=== PATIENT | female | born 2005 | race Caucasian/White ===

== ENCOUNTER 2023-05-19 12:48 | Outpatient (OUT) | payer OTHER, SELFPAY ==
--- NOTE | 2023-05-19 12:53 | US_ITS ---
The [address] [address] Patient Name: BEVERLY GÓMEZ MRN: [id number] date: 2005 Sex: F Assigned Patient [facility]: [facility] Current [facility]: [facility] Accession/Order Number: [id number] Exam Date: 05/19/2023 12:53 Report Date: 05/19/2023 13:57 At the request of: KERRY BAUTISTA Procedure: US pelvis w/ transvaginal EXAM: Pelvic ultrasound ultrasound CLINICAL INDICATION: PELVIC PAIN. COMPARISON: CT scan dated 12/27/2015 TECHNIQUE: Transabdominal and transvaginal grayscale and color Doppler images were obtained. FINDINGS: Uterus: Uterus measures 6.1 x 2.7 x 3.3 cm. No abnormal uterine masses. Endometrium measures mm thickness. Right ovary: Measures 2.3 x 2.2 x 1.9 cm. Normal color flow and Doppler arterial and venous waveforms. No ovarian masses. Left ovary: Measures 2.2 x 1.8 x 1.7 cm. Normal color flow and Doppler arterial and venous waveforms. No ovarian masses. No free fluid in the pelvis. US/US pelvis w/ transvaginal IMPRESSION: No significant sonographic abnormalities in the pelvis. Electronically authenticated by: FLACA GÓMEZ Date: 05/19/2023 13:57
== END 2023-05-19 12:49 | disposition home or self-care (01) ==
LOC: NOMS 12:49
PROVIDERS: Visit Provider Obstetrics & Gynecology
DX: R10.2 Pelvic and perineal pain (principal)
CPT/HCPCS: 76830; 76856

== ENCOUNTER 2023-06-26 10:52 | Outpatient (OUT) | payer OTHER, SELFPAY ==
--- OUTSIDE RECORDS SUMMARY | 2023-06-26 10:59 | XMS_ITS | CCD ---
Author Organization [facility] Care Team Providers Care Carton Counter Feeder Name Role Phone TYSON BANDA Attending Unavailable TYSON BANDA Admitting Unavailable TYSON BANDA Consulting Unavailable TYSON BANDA Attending Unavailable TYSON BANDA Admitting Unavailable TYSON BANDA Consulting Unavailable MD Talat Nolan Primary Care Provider DO Irma Smith Attending Provider [phone] Irma Smith Admitting Unavailable Irma Smith Attending Unavailable NON STAFF Primary Care Unavailable Irma Smith Admitting Unavailable Irma Smith Attending Unavailable Talat Nolan Primary Care Unavailable Lori Stephen Admitting Unavailable Lori Stephen Attending Unavailable Talat Nolan Primary Care Unavailable Lori Stephen Unavailable Unavailable Primary Care Provider Unavailabl e RICHARD MCCLELLAN Attending Unavailab AKANKSHA Jack Unavailable RICHARD MCCLELLAN Referring Unavailab KERRY Smith Attending Unavailable AKANKSHA OBRIEN Referring Unavailable TALAT NOLAN Primary Care Unavailabl e Medications Current Medications Medication Drug Class(es) Dates Sig (Normalized) Sig (Original) Ethinyl Estradiol / Ferrous fumarate / Norethindrone (2 sources) Estrogen Start: 05-19-2023 End: 05-18-2024 norethindrone-et hinyl estradiol (04/25) 1-20 MG-MCG tablet Indications: control counseling Take 1 tablet by mouth in the morning. 28 tablet 11 05/19/2023 05/18/2024 Active ibuprofen 400 mg oral tablet (3 sources) Nonsteroidal Anti-inflammatory Drug Start: 12-12-2017 take 400 mg by mouth three times daily Ibuprofen Active 400 MG PO Three times daily 20 Deidra 8th, 2018 12:00am ibuprofen 800 MG tablet 400 mg every 6 (six) hours if needed 0 Active levETIRAcetam 500 mg oral tablet (2 sources) take 1 tablet by mouth in the morning levETIRAcetam (Keppra) 500 MG tablet Take 500 mg by mouth in the morning and 500 mg in the evening. 0 Active 24 hr metFORMIN hydrochloride 500 mg extended release oral tablet (2 sources) Biguanide Start : 07-02 take 1 tablet by mouth every twenty-four hours at mealtime metFORMIN XR (Glucophage-XR) 500 MG 24 hr tablet Take 500 mg by mouth in the evening. Take with meals 0 07/02/2022 Active methylPREDNISolone 4 mg oral tablet (1 source) Corticosteroid Start : 02-10 methylPREDNISolone 4 MG as directed Orally Once a day for 6 days Feb, Active ondansetron 4 mg disintegrating oral tablet (1 source) Serotonin-3 Receptor Antagonist Start : 12-12 take 1 tablet by mouth every eight hours Ondansetron (Zofran Odt) 4 mg tablet,disintegrating Active 4 MG PO Q8H 9 3 December 12, 2017 12:00am OXcarbazepine 600 mg oral tablet (3 sources) Anti-epileptic Agent take 2 tablets by mouth in the morning OXcarbazepine (Trileptal) 600 MG tablet Take 1,200 mg by mouth in the morning and 1,200 mg before bedtime. 0 Active Trileptal Active Completed/Discontinued Medications Medication Drug Class(es) Dates Sig (Normalized) Sig (Original) amoxicillin 80 mg/ml oral suspension (1 source) Penicillin-class Antibacterial Start: 2014 take 10 mL by mouth twice daily Amoxicillin 400 MG/5ML 10 ml Orally Twice a day for 10 days Oct, Not-Taking Azithromycin (1 source) Macrolide Antimicrobial Start: 07-14-2014 take 12.5 mL by mouth once daily Zithromax 200mg/5ml 200 mg/5 ml 12.5 mL orally daily for 5 days Jul, Not-Taking ofloxacin 3 mg/ml ophthalmic solution (1 source) Quinolone Antimicrobial Start: 2014 Ofloxacin 0.3 % 10 drops into affected ear Otic Once a day for 7 day(s) Oct, Not-Taking Problems Problem Classification Problem Date Documented Da te Episodic/Chronic Abdominal pain (2 sources) Pain in pelvis; Translations: [Pelvic and perineal pain] 05-19-2023 Episodic Administrative/social admission (2 sources) Follow-up status; Translations: [Person consulting for explanation of examination or test findings] 05-19-2023 Episodic Contraceptive and procreative management (2 sources) Patient encounter status; Translations: [Encounter for other general counseling and advice on contraception] 05-19-2023 Episodic Epilepsy; convulsions (3 sources) Generalized idiopathic epilepsy and epileptic syndromes, not intractable, without status epilepticus; Translations: [Generalized convulsive epilepsy, without mention of intractable epilepsy] Onset: 02-06-2022 05-07-2023 Chronic Epilepsy; convulsions (1 source) Epilepsy; convulsions; Translations: [G40.309 - Generalized idiopathic epilepsy and epileptic syndromes, not intractable, without status epilepticus] Onset: 02-26-2021 Immunizations and screening for infectious disease (4 sources) Encounter for immunization; Translations: [ENCOUNTER FOR IMMUNIZATION] Onset: 08-09-2020 Episodic Other endocrine disorders (2 sources) Polycystic ovary syndrome; Translations: [Polycystic ovarian syndrome] 05-19-2023 Chronic Other endocrine disorders (1 source) Polycystic ovarian syndrome; Translations: [Polycystic ovarian syndrome] Onset: 06-06-2023 Chronic Other injuries and conditions due to external causes (1 source) Unspecified injury of right ankle, initial encounter Episodic Unclassified (1 source) Unspecified injury of right ankle, initial encounter; Translations: [Unspecified injury of right ankle, initial encounter] Onset: 02-10-2022 Results Test Name Value Interpretation Reference Range Facility CBC AND AUTO DIFFon 06-06-19 24 ABSOLUTE BASOPHIL 0.1 X10E9/L Normal 0.0-0.2 [facility] Comment on above: Performed By: #### C BCA, 84858-8, THYR, 59645-1, 59563-6 #### [facility] ([id number]) [address] [place] [address], [address] [place] [address] #### 2193-1 #### [facility] ([id number]) [address] [place] [address], [place] [address] ABSOLUTE NEUTROPHIL 2.2 X10E9/L Normal 1.5-6.6 [facility] Comment on above: Performed By: #### C SHANICE, , THYR, 49304-2, 80397-9 #### [facility] ([id number]) [address], [address] [place] [address] #### 2193-1 #### [facility] ([id number]) [address] [place] [address] Basophils/100 WBC (Bld) 1.1 % Normal [facility] Comment on above: Performed By: #### C SHANICE, , THYR, 94207-0, 13821-1 #### [facility] ([id number]) [address] [facility], [address] [place] [address] #### 2193-1 #### [facility] ([id number]) [address] [place] [address]491 Eosinophils (Bld) [#/Vol] 0.1 10*3/uL Normal 0.0-0.4 [facility] Comment on above: Performed By: #### C SHANICE, , THYR, 63246-2, 25637-8 #### [facility] ([id number]) [address], [address] [place] [address] #### 2193-1 #### [facility] ([id number]) [address] [place] [address] Eosinophils/100 WBC (Bld) 1.4 % Normal [facility] Comment on above: Performed By: #### C BCA, , THYR, 95037-9, 61618-9 #### [facility] ([id number]) [address], [address] [place] [address] #### 2193-1 #### [facility] ([id number]) [address] [place] [address] 18482 Erythrocyte distribution width (RBC) [Ratio] 13.0 % Normal 11.5-15.0 [facility] Comment on above: Performed By: #### C BCA, 92700-8, THYR, 87689-0, 88805-2 #### [facility] ([id number]) [address] [place] [address], [address] [address] #### 2193-1 #### [facility] ([id number]) [address] [place] [address]644 Hematocrit (Bld) [Volume fraction] 40.8 % Normal 35-47 [facility] Comment on above: Performed By: #### C BCA, 83712-2, THYR, 58760-5, 44135-9 #### [facility] ([id number]) [address] [place] [address], [address] [place] [address] #### 2193-1 #### [facility] ([id number]) [address] [place] [address]7798 Hemoglobin (Bld) [Mass/Vol] 13.6 g/dL Normal 11.7-15.5 [facility] Comment on above: Performed By: #### C BCA, 73384-7, THYR, 33328-5, 53389-6 #### [facility] ([id number]) [address] [place] [address], [address] [place] [address] #### 2193-1 #### [facility] ([id number]) [address] [place] [address]12 Lymphocytes (Bld) [#/Vol] 2.1 10*3/uL Normal 1.0-3.5 [facility] Comment on above: Performed By: #### C BCA, 39343-5, THYR, 22633-7, 47859-6 #### [facility] ([id number]) [address] [facility] [address], [address] [place] [address] #### 2193-1 #### [facility] ([id number]) [address] [place] [address] 01728 Lymphocytes/100 WBC (Bld) 43.8 % Normal [facility] Comment on above: Performed By: #### Roberto BCA, , THYR, 50355-0, 15217-7 #### [facility] ([id number]) [address] [facility] [address], [address] [place] [address] #### 2193-1 #### [facility] ([id number]) [address] [place] [address] 18253 MCH (RBC) [Entitic mass] 29.9 pg Normal 27-34 [facility] Comment on above: Performed By: #### Roberto PRASAD, , THYR, 37047-3, 78739-2 #### [facility] ([id number]) [address] [address], [address] [place] [address] #### 2193-1 #### [facility] ([id number]) [address] [place] [address] 29681 MCHC (RBC) [Mass/Vol] 33.3 g/dL Normal 32-36 [facility] Comment on above: Performed By: #### Roberto BCA, , THYR, 60428-5, 32271-5 #### [facility] ([id number]) [address] [facility], [address] [place] [address] #### 2193-1 #### [facility] ([id number]) [address] [place] [address]108 MCV (RBC) [Entitic vol] 90 fL Normal 80-100 [facility] Comment on above: Performed By: #### Roberto BCA, , THYR, 42367-0, 74005-5 #### [facility] ([id number]) [address] [facility], [address] [place] [address] #### 2193-1 #### [facility] ([id number]) [address] [place] [address] 58602 Monocytes (Bld) [#/Vol] 0.3 10*3/uL Normal 0-0.9 [facility] Comment on above: Performed By: #### C BCA, 24352-9, THYR, 76386-0, 22928-9 #### [facility] ([id number]) [address] [place] [address], [facility] [address] [place] [address] #### 2193-1 #### [facility] ([id number]) [address] [place] [address] 73660 Monocytes/100 WBC (Bld) 7.3 % Normal [facility] Comment on above: Performed By: #### C BCA, 10402-6, THYR, 20437-6, 78231-8 #### [facility] ([id number]) [address] [place] [address], [address] [address] #### 2193-1 #### [facility] ([id number]) [address] [place] [address] 12594 Neutrophils/100 WBC (Bld) 46.4 % Normal [facility] Comment on above: Performed By: #### C BCA, 91485-9, THYR, 26319-9, 12661-4 #### [facility] ([id number]) [address] [place] [address], [facility] [address] [place] [address] #### 2193-1 #### [facility] ([id number]) [address] [place] [address] 87007 Platelet mean volume (Bld) [Entitic vol] 8.7 fL Normal 7-12 [facility] Comment on above: Performed By: #### C BCA, 15131-7, THYR, 84971-1, 35108-2 #### [facility] ([id number]) [address] [facility], [address] [place] [address] #### 2193-1 #### [facility] ([id number]) [address] [place] [address] 85942 Platelets (Bld) [#/Vol] 269 10*3/uL Normal 150-450 [facility] Comment on above: Performed By: #### C BCA, 48475-1, THYR, 93014-7, 93986-8 #### [facility] ([id number]) [address] [facility], [address] [place] [address] #### 2193-1 #### [facility] ([id number]) [address] [place] [address] 27163 RBC COUNT 4.55 X10E12/L Normal 3.80-5.20 [facility] Comment on above: Performed By: #### C BCA, 32298-3, THYR, 59686-9, 90316-5 #### [facility] ([id number]) [address] [facility], [address] [place] [address] #### 2193-1 #### [facility] ([id number]) [address] [place] [address] 15015 WBC (Bld) [#/Vol] 4.8 10*3/uL Normal 4.0-11.0 [facility] Comment on above: Performed By: #### C BCA, 93853-1, THYR, 11702-3, 90314-4 #### [facility] ([id number]) [address], [address] [place] [address] #### 2193-1 #### [facility] ([id number]) [address] [place] [address] 79359 DHEA [Mass/Vol]on 06-06-2023 DHEA 3.722 ng/mL Normal 1.330-7.780 [facility] Comment on above: Result Comment: NOTE INTERPRETIVE INFORMATION: Dehydroepiandrosterone, Females 18 years and older: Postmenopausal: 0.60-5.73 ng/mL REFERENCE INTERVAL: Dehydroepiandrosterone by TMS Access complete set of age- and/or gender-specific reference intervals for this test in the [facility] Test Directory ([employer]). This test was developed and its performance characteristics determined by [facility]. It has not been cleared or approved by the [place] Food and Drug Administration. This test was performed in a CLIA certified laboratory and is intended for clinical purposes. Performed By: [facility] [address] [place] [address] Ladle Watcher: Bandar Whaley MD, PhD CLIA Number: [id number] Performed By: #### C BCA, 74918-2, THYR, 42459-7, 29220-9 #### [facility] ([id number]) [address] [place] [address], [address] [place] [address] #### 2193-1 #### [facility] ([id number]) [address] [place] [address] 53389 DHEA-S [Mass/Vol]on 06-06-19 24 DHEA S 220 ug/dL Normal 51-321 [facility] Comment on above: Performed By: #### 2 191-5 #### [facility] ([id number]) [address] [place] [address], [address] [place] [address] Follitropin Qnon 06-06-2023 FOLLICLE STIM HORMONE 5.3 mIU/mL Normal [facility] Comment on above: Result Comment: NORMAL FEMALE Luteal 1.8-5.1 mIU/mL Follicular 3.8-8.8 mIU/mL Mid Cycle 4.5-22.5 mIU/mL Post Debi 16.7-113.6 mIU/mL Performed By: #### Roberto BCA, 74137-9, THYR, 55362-9, 15833-8 #### [facility] ([id number]) [address] [facility], [address] [place] [address] #### 2193-1 #### [facility] ([id number]) [address] [place] [address]1499 HCG.beta subunit IA 3rd IS Q non 06-06-2023 SERUM B HCG,3RD I.S. <5 Normal [facility] Comment on above: Result Comment: NEW REFERENCE RANGE WEEKS (SINCE LMP) MIU/mL 3 WEEKS 5 - 50 4 WEEKS 5 - 426 5 WEEKS 18 - 7,340 6 WEEKS 1,080 - 56,500 7-8 WEEKS 7,650 - 229,000 9-12 WEEKS 25,700 - 288,000 13-16 WEEKS 13,300 - 254,000 17-24 WEEKS 4,060 - 165,400 25-40 WEEKS 3,640 - 117,000 MALES AND NON- FEMALES - <5 MIU/mL This test has been FDA approved for use in only. Elevated levels are not necessarily diagnostic for trophoblastic or nontrophoblastic neoplasms. Performed By: #### Roberto BCA, , THYR, 72645-2, 15221-3 #### [facility] ([id number]) [address], [address] [place] [address] #### 2193-1 #### [facility] ([id number]) [address] [place] [address] HGB A1C (GLYCO-HGB)on 2023 Glucose [Mass/Vol] 105 mg/dL Normal [facility] Comment on above: Performed By: ###Derek Mejia BCA, , THYR, 22420-3, 92167-7 #### [facility] ([id number]) [facility] [facility], [address] [place] [address] #### 2193-1 #### [facility] ([id number]) [address] [place] [address]28 HbA1c (Bld) [Mass fraction] 5.3 % Normal 4.4-5.6 [facility] Comment on above: Result Comment: NOTE ADA Guidelines Result HgbA1c Normal : less than 5.7 % Prediabetes : 5.7 % to 6.4 % Diabetes : > 6.4 % Use with caution in patients with abnormal hemoglobin variants as the half-life of red blood cells and in vivo glycation rates are affected. Performed By: #### Roberto PRASAD, , THYR, 36527-7, 58764-9 #### [facility] ([id number]) [address] [place] [address], [address] [address] #### 2193-1 #### [facility] ([id number]) [address] [place] [address]242 Lutropin Qnon 06-06-2023 LUTEINIZING HORMONE 8.6 mIU/mL Normal [facility] Comment on above: Result Comment: NORMAL FEMALE Follicular 2.1-10.9 mIU/mL Mid Cycle 19.2-103 mIU/mL Luteal 1.2-12.9 mIU/mL Post Debi 10.9-58.6 mIU/mL Performed By: #### Roberto BCA, , THYR, 44923-6, 68698-0 #### [facility] ([id number]) [address] [place] [address], [address] [place] [address] #### 2193-1 #### [facility] ([id number]) [address] [place] [address] THYROID PROFILEon 06-06-2023 Free T4 [Mass/Vol] 0.47 ng/dL Low 0.61-1.60 [facility] Comment on above: Performed By: #### C BCA, 00963-7, THYR, 94758-6, 04482-1 #### [facility] ([id number]) [address] [place] [address], [address] [place] [address] #### 2193-1 #### [facility] ([id number]) [address] [place] [address]21 TSH 0.80 uIU/mL Normal 0.49-4.67 [facility] Comment on above: Performed By: #### C BCA, 04685-5, THYR, 10138-7, 21283-0 #### [facility] ([id number]) [address] [place] [address], [facility] [address] [place] [address] #### 2193-1 #### [facility] ([id number]) [address] [place] [address] 19859 HCG ( test) Ql (U)o n 05-19-2023 Interpretation and review of laboratory results Normal [facility] Preg Test, Ur Negative [facility] Urinalysis macro (dipstick) panel (U)on 05-19-2023 Bilirubin, UA Negative Negative - 4(70) +++ mg/dL [facility] Blood, UA Negative Negative - 50 Kirby/mcL [facility] Clarity, UA Clear [facility] Color, UA Yellow [facility] Glucose, UA Negative Negative - 2000(110) ++++ mg/dL [facility] Interpretation and review of laboratory results Normal [facility] Ketones, UA Negative Negative - 160(16) ++++ mg/dL [facility] Leukocytes, UA Negative Negative - 500+++ Arelis/mcL [facility] Nitrite, UA Negative Negative - Positive [facility] pH, UA 7.0 5 - 9 [facility] Protein, UA Negative Negative - 1999(20) ++++ mg/dL [facility] Spec Grav, UA 1.010 1 - 1.03 [facility] Urobilinogen, UA 1.0 0.2 - 12 mg/dL [facility] XR ankle RT min 3V*on 2021 XR ankle RT min 3V* [address] [address] XRay Report Signed Patient: Kymberly Bradford MR#: [id number] [birth year] Acct:[id number] Age/Sex: 16 / F ADM Date: 02/10/22 Loc: XDUC Room: Type: [facility] Attending Dr: Lori OCAMPO Copies to: LORI STEPHEN Ordering Provider: LORI STEHPEN Date of Service: 02/10/22 XR/XR ankle RT min 3V*: S99.911A ([id number]) XR/XR foot RT min 3V*: S99.911A 3 viewsright foot plain film COMPARISON:None HISTORY:Right foot and ankle injury No fracture, dislocation or focal soft tissue abnormality seen. XR/XR foot RT min 3V* IMPRESSION:No acute findings 3 views of the right ankle Diffuse soft tissue swelling present. Ankle mortise preserved. No fracture. IMPRESSION: No fracture. Impression dictated by: Eliecer Escalante M.D.02/10/2022 2:28 PM Dictation Location: [place] [address] Transcribed By: [facility] 02/10/22 142 Dictated By: Eliecer Escalante DO 02/10/22 1427 Signed By: 02/10/22 1428 Normal [facility] XR ankle RT min 3V* [facility] Other XR ankle RT min 3V* [facility] Other XR ankle RT min 3V* [address] [place] [address] [facility] Other XR ankle RT min 3V* TORIN Easley [address] [place] [employer] Other XR ankle RT min 3V* XRay Report Nort [employer] Other XR ankle RT min 3V* Signed [employer] Other XR ankle RT min 3V* Patient: Mindy Bradford MR#: [id number] [facility] [employer] Other XR ankle RT min 3V* 1943 [employer] Other XR ankle RT min 3V* : 2005 Acct:[id number] [employer] Other XR ankle RT min 3V* Age/Sex: 16 / F ADM Date: 02/10/22 [employer] Other XR ankle RT min 3V* Loc: XDUCLY Room: pe: REG CLI [employer] Other XR ankle RT min 3V* Attending Dr: Guero Stephen 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-C [employer] Other XR ankle RT min 3V* Copies to: LORI STEPHEN [employer] Other XR ankle RT min 3V* Ordering Provider: [facility]PHEN [facility] Other XR ankle RT min 3V* Date of Service: 02/10/22 [employer] Other XR ankle RT min 3V* XR/XR ankle RT min 3V*: V21.133M [employer] Other XR ankle RT min 3V* ([id number]) XR/XR foot RT min 3V*: Z32.818N [employer] Other XR ankle RT min 3V* [address] film [employer] Other XR ankle RT min 3V* COMPARISON:None [employer] Other XR ankle RT min 3V* HISTORY:Right foot a nd ankle injury [employer] Other XR ankle RT min 3V* No fracture, disloca tion or focal soft tissue abnormality seen. [employer] Other XR ankle RT min 3V* X R/XR foot RT min 3V* [employer] Other XR ankle RT min 3V* IMPRESSION:No acute findings [employer] Other XR ankle RT min 3V* 3 views of the right ankle [employer] Other XR ankle RT min 3V* Diffuse soft tissue swelling present. Ankle mortise preserved. No fracture. [employer] Other XR ankle RT min 3V* IMPRESSION: No fracture. [employer] Other XR ankle RT min 3V* Impression dictated by: Eliecer Escalante M.D.02/10/2022 2:28 PM [employer] Other XR ankle RT min 3V* Dictation Location: [place] [address] [employer] Other XR ankle RT min 3V* Transcribed By: PWS 02/10/221427 [employer] Other XR ankle RT min 3V* Dictated By: Eliecer Escalante DO 02/10/221426 [employer] Other XR ankle RT min 3V* Signed By: [employer] Other XR ankle RT min 3V* 02/10/221427 No rt [employer] Other Basic Metabolic Panelon 11-0 Anion gap [Moles/Vol] 13.6 mmol/L Normal 6.0-15.0 [facility] Comment on above: Performed By: #### C BC, HEPATIC, BMP, CARB #### [facility] [address] [place] [address] [place] Calcium [Mass/Vol] 9.5 mg/dL Normal 8.2-10.2 [facility] Comment on above: Result Comment: PERF ORMED BY: [place] [address] PATHOLOGIST [employer] CORY MAR M.D. Performed By: #### C BC, HEPATIC, BMP, CARB #### [facility] [address] Chloride [Moles/Vol] 102 mmol/L Normal 95-114 [facility] Comment on above: Performed By: #### C BC, HEPATIC, BMP, CARB #### [address] CO2 [Moles/Vol] 26.4 mmol/L Normal 22.0-30.0 [facility] Comment on above: Performed By: #### C BC, HEPATIC, BMP, CARB #### [place] [address] [place] Creatinine [Mass/Vol] 0.67 mg/dL Normal 0.44-1.03 [facility] Comment on above: Performed By: #### C BC, HEPATIC, BMP, CARB #### [address] Estimated GFR ( Anna > 60 [facility] Comment on above: Result Comment: GFR estimated reference range: According to KDOQI guidelines, <60 ml/min/1.73m2 is sufficient to diagnose a patient with chronic kidney disease. Performed By: #### C BC, HEPATIC, BMP, CARB #### [place] [address] [place] Estimated GFR (Non- Am > 60 [facility] Comment on above: Performed By: #### C BC, HEPATIC, BMP, CARB #### [facility] [address] [place] [address] [place] Glucose [Mass/Vol] 125 mg/dL High 70-100 [facility] Comment on above: Result Comment: [place] Glucose Reference Range is dependent on time and content of last meal. Glucose of more than 200 mg/dL in a nonstressed, ambulatory subject supports the diagnosis of Diabetes Mellitus. ADA recommended reference range Performed By: #### C BC, HEPATIC, BMP, CARB #### [facility] [address] Potassium [Moles/Vol] 4.0 mmol/L Normal 3.5-5.1 [facility] Comment on above: Performed By: #### C BC, HEPATIC, BMP, CARB #### [facility] [address] [place] [address] [place] Sodium [Moles/Vol] 138 mmol/L Normal 136-146 [facility] Comment on above: Performed By: #### C BC, HEPATIC, BMP, CARB #### [facility] [address] [place] [address] [place] Urea nitrogen [Mass/Vol] 10 mg/dL Normal 9-23 [facility] Comment on above: Performed By: #### C BC, HEPATIC, BMP, CARB #### [facility] [address] [place] [address] [place] Basophils Auto (Bld) [#/Vol] Ordered By: Irma Smtih on 02-06-2022 Basophils (Bld) [#/Vol] 0.0 10*3/uL 0.0-0.1 [facility] Basophils/100 WBC Auto (Bld) Ordered By: Irma Smith on 02-06-2022 Basophils/100 WBC (Bld) 0.6 % . [facility] Body fluid albumin measureme nt (mass/volume)Ordered By: Irma Smith on 02-06-2022 Albumin (Body fld) [Mass/Vol] 4.0 g/dL 3.2-5.5 [facility] Carbamazepine (Tegretol)on 04-08-2021 Carbamazepine (Tegretol) < 2.0 Low 4.0-12.0 [facility] Comment on above: Order Comment: Date of last dose?: [id number] Time of last dose?: 1114 Result Comment: Last dose: - PERFORMED BY: [place] [address] PATHOLOGIST [employer] CORY MAR M.D. Performed By: #### C BC, HEPATIC, BMP, CARB #### [address] Complete Blood Count Auto Di ffon 02-06-2022 Basophils (Bld) [#/Vol] 0.0 10*3/uL Normal 0.0-0.1 [facility] Comment on above: Result Comment: PERF ORMED BY: [place] [address] PATHOLOGIST [employer]CH[employer] CORY MAR M.D. Performed By: #### C BC, HEPATIC, BMP, CARB #### [address] Basophils/100 WBC (Bld) 0.6 % Normal . [facility] Comment on above: Performed By: #### C BC, HEPATIC, BMP, CARB #### [place] [address] [place] Eosinophils (Bld) [#/Vol] 0.1 10*3/uL Normal 0.0-0.7 [facility] Comment on above: Performed By: #### C BC, HEPATIC, BMP, CARB #### [address] Eosinophils/100 WBC (Bld) 1.3 % Normal . [facility] Comment on above: Performed By: #### C BC, HEPATIC, BMP, CARB #### [facility] [address] [place] [address] [place] Erythrocyte distribution width (RBC) [Ratio] 12.7 % Normal 11.9-15.3 [facility] Comment on above: Performed By: #### C BC, HEPATIC, BMP, CARB #### [facility] [address] [place] [address] Hematocrit (Bld) [Volume fraction] 40.3 % Normal 36.0-46.0 [facility] Comment on above: Performed By: #### C BC, HEPATIC, BMP, CARB #### [address] Hemoglobin (Bld) [Mass/Vol] 13.2 g/dL Normal 12.0-16.0 [facility] Comment on above: Performed By: #### C BC, HEPATIC, BMP, CARB #### [address] Lymphocytes (Bld) [#/Vol] 2.2 10*3/uL Normal 1.20-4.8 [facility] Comment on above: Performed By: #### C BC, HEPATIC, BMP, CARB #### [address] Lymphocytes/100 WBC (Bld) 41.5 % Normal . [facility] Comment on above: Performed By: #### C BC, HEPATIC, BMP, CARB #### [address] MCH (RBC) [Entitic mass] 29.2 pg Normal 25.0-35.0 [facility] Comment on above: Performed By: #### C BC, HEPATIC, BMP, CARB #### [address] MCV (RBC) [Entitic vol] 89.1 fL Normal 78-102 [facility] Comment on above: Performed By: #### C BC, HEPATIC, BMP, CARB #### [address] Mean Corpuscular HGB Conc 32.8 g/dL Normal 31.0-37.0 [facility] Comment on above: Performed By: #### C BC, HEPATIC, BMP, CARB #### [place] [address] [place] Monocytes (Bld) [#/Vol] 0.3 10*3/uL Normal 0.1-1.00 [facility] Comment on above: Performed By: #### C BC, HEPATIC, BMP, CARB #### [place] [address] [place] Monocytes/100 WBC (Bld) 5.7 % Normal . [facility] Comment on above: Performed By: #### C BC, HEPATIC, BMP, CARB #### [place] [address] [place] Neutrophils (Bld) [#/Vol] 2.6 10*3/uL Normal 1.2-7.7 [facility] Comment on above: Performed By: #### C BC, HEPATIC, BMP, CARB #### [place] [address] [place] Neutrophils/100 WBC (Bld) 50.9 % Normal . [facility] Comment on above: Performed By: #### C BC, HEPATIC, BMP, CARB #### [place] [address] [place] Nucleated RBC/100 WBC (Bld) [Ratio] 0.1 % Normal 0-0.5 [facility] Comment on above: Performed By: #### C BC, HEPATIC, BMP, CARB #### [address] Platelet mean volume (Bld) [Entitic vol] 8.6 fL Normal 6.3-10.7 [facility] Comment on above: Performed By: #### C BC, HEPATIC, BMP, CARB #### [place] [address] [place] Platelets (Bld) [#/Vol] 248 10*3/uL Normal 150-450 [facility] Comment on above: Performed By: #### C BC, HEPATIC, BMP, CARB #### [place] [address] [place] RBC (Bld) [#/Vol] 4.53 10*6/uL Normal 4.10-5.10 [facility] Comment on above: Performed By: #### C BC, HEPATIC, BMP, CARB #### [place] [address] [place] WBC (Bld) [#/Vol] 5.2 10*3/uL Normal 4.5-13.5 [facility] Comment on above: Performed By: #### C BC, HEPATIC, BMP, CARB #### [facility] [address] Creatinine and Glomerular fi ltration rate.predicted panel (S/P/Bld)Ordered By: Irma Smith on 02-06-2022 Creatinine [Mass/Vol] 0.67 mg/dL 0.44-1.03 [facility] Direct bilirubin measurement Ordered By: Irma Smith on 02-06-2022 Bilirubin.direct [Mass/Vol] mg/dL 0.0-0.4 [facility] Eosinophils Auto (Bld) [#/Vo l]Ordered By: Irma Smith on 02-06-2022 Eosinophils (Bld) [#/Vol] 0.1 10*3/uL 0.0-0.7 [facility] Eosinophils/100 WBC Auto (Bl d)Ordered By: Irma Smith on 02-06-2022 Eosinophils/100 WBC (Bld) 1.3 % . [facility] Erythrocyte distribution wid th Auto (RBC) [Ratio]Ordered By: Irma Smith on 02-06-2022 Erythrocyte distribution width (RBC) [Ratio] 12.7 % 11.9-15.3 [facility] Estimated glomerular filtrat ion rate (GFR) non- AmericanOrdered By: Irma Smith on 02-06-2022 GFR/1.73 sq M.predicted among non-blacks MDRD (S/P/Bld) [Vol rate/Area] > 60 mL/Min [facility] Globulin Calc (S) [Mass/Vol] Ordered By: Irma Smith on 02-06-2022 Globulin (S) [Mass/Vol] 2.8 g/dL [facility] Hematocrit Auto (Bld) [Volum e fraction]Ordered By: Irma Smith on 02-06-2022 Hematocrit (Bld) [Volume fraction] 40.3 % 36.0-46.0 [facility] Hemoglobin [Mass/volume] in BloodOrdered By: Irma Smith on 02-06-2022 Hemoglobin (Bld) [Mass/Vol] 13.2 g/dL 12.0-16.0 [facility] Hepatic Panelon 02-06-2022 Albumin [Mass/Vol] 4.0 g/dL Normal 3.2-5.5 [facility] Comment on above: Performed By: #### C BC, HEPATIC, BMP, CARB #### [facility] [address] Albumin/Globulin [Mass ratio] 1.4 {ratio} Normal [facility] Comment on above: Performed By: #### C BC, HEPATIC, BMP, CARB #### [facility] [address] ALP [Catalytic activity/Vol] 75 U/L Normal 32-92 [facility] Comment on above: Performed By: #### C BC, HEPATIC, BMP, CARB #### [facility] [address] ALT [Catalytic activity/Vol] 32 U/L Normal 10-60 [facility] Comment on above: Performed By: #### C BC, HEPATIC, BMP, CARB #### [facility] [address] AST [Catalytic activity/Vol] 18 U/L Normal 10-42 [facility] Comment on above: Performed By: #### C BC, HEPATIC, BMP, CARB #### [facility] [address] Bilirubin [Mass/Vol] 0.3 mg/dL Normal 0.3-1.2 [facility] Comment on above: Performed By: #### C BC, HEPATIC, BMP, CARB #### [facility] [address] [place] [address] [place] Bilirubin,Indirect Not performed Normal [facility] Comment on above: Performed By: #### C BC, HEPATIC, BMP, CARB #### [facility] [address] Bilirubin.indirect [Mass/Vol] mg/dL Normal 0.0-0.4 [facility] Comment on above: Performed By: #### C BC, HEPATIC, BMP, CARB #### [facility] [address] Globulin (S) [Mass/Vol] 2.8 g/dL Normal [facility] Comment on above: Performed By: #### C BC, HEPATIC, BMP, CARB #### [facility] [address] Protein [Mass/Vol] 6.8 g/dL Normal 6.1-7.9 [facility] Comment on above: Performed By: #### C BC, HEPATIC, BMP, CARB #### [facility] [address] Laboratory - Hematology and Cell countsOrdered By: Irma Smith on 02-06-2022 Nucleated RBC/100 WBC (Bld) [Ratio] 0.1 % 0-0.5 [facility] Leukocytes [#/volume] in Blo od by Automated countOrdered By: Irma Smith on 02-06-2022 WBC (Bld) [#/Vol] 5.2 10*3/uL 4.5-13.5 [facility] Lymphocytes Auto (Bld) [#/Vo l]Ordered By: Irma Smith on 02-06-2022 Lymphocytes (Bld) [#/Vol] 2.2 10*3/uL 1.20-4.8 [facility] Lymphocytes/100 WBC Auto (Bl d)Ordered By: Irma Smith on 02-06-2022 Lymphocytes/100 WBC (Bld) 41.5 % . [facility] MCH Auto (RBC) [Entitic mass ]Ordered By: Irma Smith on 02-06-2022 MCH (RBC) [Entitic mass] 29.2 pg 25.0-35.0 [facility] MCHC Auto (RBC) [Mass/Vol]Or dered By: Irma Smith on 02-06-2022 MCHC (RBC) [Mass/Vol] 32.8 g/dL 31.0-37.0 [facility] MCV Auto (RBC) [Entitic vol] Ordered By: Irma Smith on 02-06-2022 MCV (RBC) [Entitic vol] 89.1 fL 78-102 [facility] Monocytes Auto (Bld) [#/Vol] Ordered By: Irma Smith on 02-06-2022 Monocytes (Bld) [#/Vol] 0.3 10*3/uL 0.1-1.00 [facility] Monocytes/100 WBC Auto (Bld) Ordered By: Irma Smith on 02-06-2022 Monocytes/100 WBC (Bld) 5.7 % . [facility] Neutrophils Auto (Bld) [#/Vo l]Ordered By: Irma Smith on 02-06-2022 Neutrophils (Bld) [#/Vol] 2.6 10*3/uL 1.2-7.7 [facility] Neutrophils/100 WBC Auto (Bl d)Ordered By: Irma Smith on 02-06-2022 Neutrophils/100 WBC (Bld) 50.9 % . [facility] No Panel InformationOrdered By: Irma Smith on 02-06-2022 Estimated GFR () > 60 mL/Min [facility] Comment on above: GFR estimated refere nce range: According to KDOQI guidelines, <60 ml/min/1.73m2 is sufficient to diagnose a patient with chronic kidney disease. Pharmacy Creatinine Clearance (Chem N/A [facility] Platelet mean volume Auto (B ld) [Entitic vol]Ordered By: Irma Smith on 02-06-2022 Platelet mean volume (Bld) [Entitic vol] 8.6 fL 6.3-10.7 [facility] Platelets Auto (Bld) [#/Vol] Ordered By: Irma Smith on 02-06-2022 Platelets (Bld) [#/Vol] 248 10*3/uL 150-450 [facility] Protein [Mass/volume] in Ser um or PlasmaOrdered By: Irma Smith on 02-06-2022 Protein [Mass/Vol] 6.8 g/dL 6.1-7.9 [facility] RBC Auto (Bld) [#/Vol]Ordere d By: Irma Smith on 02-06-2022 RBC (Bld) [#/Vol] 4.53 10*6/uL 4.10-5.10 [facility] Serum or plasma alanine martin otransferase measurement without P-5'-P (enzymatic activiOrdered By: Irma Smith on 02-06-2022 ALT No additional P-5'-P [Catalytic activity/Vol] 32 U/L 10-60 [facility] Serum or plasma albumin/glob ulin mass ratioOrdered By: Irma Smith on 02-06-2022 Albumin/Globulin [Mass ratio] 1.4 {ratio} [facility] Serum or plasma alkaline kenny sphatase measurement (enzymatic activity/volume)Ordered By: Irma Smith on 02-06-2022 ALP [Catalytic activity/Vol] 75 U/L 32-92 [facility] Serum or plasma anion gap de terminationOrdered By: Irma Smith on 02-06-2022 Anion gap [Moles/Vol] 13.6 mmol/L 6.0-15.0 [facility] Serum or plasma aspartate am inotransferase measurement (enzymatic activity/volume)Ordered By: Irma Smith on 02-06-2022 AST [Catalytic activity/Vol] 18 U/L 10-42 [facility] Serum or plasma calcium eduardo urement (mass/volume)Ordered By: Irma Smith on 02-06-2022 Calcium [Mass/Vol] 9.5 mg/dL 8.2-10.2 [facility] Serum or plasma chloride vi surement (moles/volume)Ordered By: Irma Smith on 02-06-2022 Chloride [Moles/Vol] 102 mmol/L 95-114 [facility] Serum or plasma glucose eduardo urement (mass/volume)Ordered By: Irma Smith on 02-06-2022 Glucose [Mass/Vol] 125 mg/dL 70-100 [facility] Comment on above: ADA recommended refe rence rangeRandom Glucose Reference Range is dependent on time and content of last meal. Glucose of more than 200 mg/dL in a nonstressed, ambulatory subject supports the diagnosis of Diabetes Mellitus. Serum or plasma non-glucuron idated bilirubin measurement (mass/volume)Ordered By: Irma Smith on 02-06-2022 Bilirubin.indirect [Mass/Vol] TNP [facility] Comment on above: Test not performed Serum or plasma potassium me asurement (moles/volume)Ordered By: Irma Smith on 02-06-2022 Potassium [Moles/Vol] 4.0 mmol/L 3.5-5.1 [facility] Serum or plasma sodium measu rement (moles/volume)Ordered By: Irma Smith on 02-06-2022 Sodium [Moles/Vol] 138 mmol/L 136-146 [facility] Serum or plasma total biliru bin measurement (mass/volume)Ordered By: Irma Smith on 02-06-2022 Bilirubin [Mass/Vol] 0.3 mg/dL 0.3-1.2 [facility] Serum or plasma total carbon dioxide measurement (moles/volume)Ordered By: Irma Smith on 02-06-2022 CO2 [Moles/Vol] 26.4 mmol/L 22.0-30.0 [facility] Serum or plasma urea nitroge n measurement (mass/volume)Ordered By: Irma Smith on 02-06-2022 Urea nitrogen [Mass/Vol] 10 mg/dL 9-23 [facility] carBAMazepine [Mass/volume] in Serum or PlasmaOrdered By: Irma Smith on 02-06-2022 carBAMazepine [Mass/Vol] < 2.0 ug/mL 4.0-12.0 [facility] Comment on above: Last dose: - Basic Metabolic Panelon 02-05 Calcium [Mass/Vol] 10.1 mg/dL Normal 8.2-10.2 [facility] Comment on above: Result Comment: PERF ORMED BY: [place] [address] PATHOLOGIST [employer] CORY MAR M.D. Performed By: #### C BC, HEPATIC, BMP #### [facility] [address] Chloride [Moles/Vol] 105 mmol/L Normal 95-114 [facility] Comment on above: Performed By: #### C BC, HEPATIC, BMP #### [facility] [address] CO2 [Moles/Vol] 24.3 mmol/L Normal 22.0-30.0 [facility] Comment on above: Performed By: #### C BC, HEPATIC, BMP #### [facility] [address] Creatinine [Mass/Vol] 0.64 mg/dL Normal 0.44-1.03 [facility] Comment on above: Performed By: #### C BC, HEPATIC, BMP #### [facility] [address] Glucose [Mass/Vol] 80 mg/dL Normal 70-100 [facility] Comment on above: Result Comment: [facility] Glucose Reference Range is dependent on time and content of last meal. Glucose of more than 200 mg/dL in a nonstressed, ambulatory subject supports the diagnosis of Diabetes Mellitus. ADA recommended reference range Performed By: #### C BC, HEPATIC, BMP #### [facility] [address] Potassium [Moles/Vol] 4.1 mmol/L Normal 3.5-5.1 [facility] Comment on above: Performed By: #### C BC, HEPATIC, BMP #### [address] Sodium [Moles/Vol] 140 mmol/L Normal 138-145 [facility] Comment on above: Performed By: #### C BC, HEPATIC, BMP #### [address] Urea nitrogen [Mass/Vol] 10 mg/dL Normal 12-27 [facility] Comment on above: Performed By: #### C BC, HEPATIC, BMP #### [address] Complete Blood Count Auto Di ffon 02-26-2021 Basophils (Bld) [#/Vol] 0.0 10*3/uL Normal 0.0-0.1 [facility] Comment on above: Result Comment: PERF ORMED BY: [place] [address] PATHOLOGIST [employer] CORY MAR M.D. Performed By: #### C BC, HEPATIC, BMP #### [place] [address] [place] Basophils/100 WBC (Bld) 0.6 % Normal . [facility] Comment on above: Performed By: #### C BC, HEPATIC, BMP #### [facility] [address] Eosinophils (Bld) [#/Vol] 0.1 10*3/uL Normal 0.0-0.7 [facility] Comment on above: Performed By: #### C BC, HEPATIC, BMP #### [facility] [address] Eosinophils/100 WBC (Bld) 2.0 % Normal . [facility] Comment on above: Performed By: #### C BC, HEPATIC, BMP #### [address] Erythrocyte distribution width (RBC) [Ratio] 13.1 % Normal 11.9-15.3 [facility] Comment on above: Performed By: #### C BC, HEPATIC, BMP #### [address] Hematocrit (Bld) [Volume fraction] 43.3 % Normal 36.0-46.0 [facility] Comment on above: Performed By: #### C BC, HEPATIC, BMP #### [address] Hemoglobin (Bld) [Mass/Vol] 14.2 g/dL Normal 12.0-16.0 [facility] Comment on above: Performed By: #### C BC, HEPATIC, BMP #### [facility] [address] [place] [address] [place] Lymphocytes (Bld) [#/Vol] 2.2 10*3/uL Normal 1.20-4.8 [facility] Comment on above: Performed By: #### C BC, HEPATIC, BMP #### [place] [address] [place] Lymphocytes/100 WBC (Bld) 37.4 % Normal . [facility] Comment on above: Performed By: #### C BC, HEPATIC, BMP #### [address] MCH (RBC) [Entitic mass] 28.9 pg Normal 25.0-35.0 [facility] Comment on above: Performed By: #### C BC, HEPATIC, BMP #### [facility] [address] MCV (RBC) [Entitic vol] 88.1 fL Normal 78-102 [facility] Comment on above: Performed By: #### C BC, HEPATIC, BMP #### [facility] [address] Mean Corpuscular HGB Conc 32.8 g/dL Normal 31.0-37.0 [facility] Comment on above: Performed By: #### C BC, HEPATIC, BMP #### [facility] [address] Monocytes (Bld) [#/Vol] 0.5 10*3/uL Normal 0.1-1.00 [facility] Comment on above: Performed By: #### C BC, HEPATIC, BMP #### [address] Monocytes/100 WBC (Bld) 9.1 % Normal . [facility] Comment on above: Performed By: #### C BC, HEPATIC, BMP #### [address] Neutrophils (Bld) [#/Vol] 3.0 10*3/uL Normal 1.2-7.7 [facility] Comment on above: Performed By: #### C BC, HEPATIC, BMP #### [place] [address] [place] Neutrophils/100 WBC (Bld) 50.9 % Normal . [facility] Comment on above: Performed By: #### C BC, HEPATIC, BMP #### [facility] [address] [place] [address] [place] Nucleated RBC/100 WBC (Bld) [Ratio] 0.1 % Normal 0-0.5 [facility] Comment on above: Performed By: #### C BC, HEPATIC, BMP #### [place] [address] [place] Platelet mean volume (Bld) [Entitic vol] 9.3 fL Normal 6.3-10.7 [facility] Comment on above: Performed By: #### C BC, HEPATIC, BMP #### [facility] [address] Platelets (Bld) [#/Vol] 269 10*3/uL Normal 150-450 [facility] Comment on above: Performed By: #### C BC, HEPATIC, BMP #### [facility] [address] RBC (Bld) [#/Vol] 4.92 10*6/uL Normal 4.10-5.10 [facility] Comment on above: Performed By: #### C BC, HEPATIC, BMP #### [address] WBC (Bld) [#/Vol] 5.9 10*3/uL Normal 4.5-13.5 [facility] Comment on above: Performed By: #### C BC, HEPATIC, BMP #### [address] Hepatic Panelon 02-26-2021 Albumin [Mass/Vol] 4.4 g/dL Normal 3.2-5.5 [facility] Comment on above: Performed By: #### C BC, HEPATIC, BMP #### [address] Albumin/Globulin [Mass ratio] 1.4 {ratio} Normal [facility] Comment on above: Performed By: #### C BC, HEPATIC, BMP #### [address] ALP [Catalytic activity/Vol] 78 U/L Normal 32-92 [facility] Comment on above: Performed By: #### C BC, HEPATIC, BMP #### [address] ALT [Catalytic activity/Vol] 35 U/L Normal 10-60 [facility] Comment on above: Performed By: #### C BC, HEPATIC, BMP #### [address] [place] [address] [place] AST [Catalytic activity/Vol] 20 U/L Normal 10-42 [facility] Comment on above: Performed By: #### C BC, HEPATIC, BMP #### [facility] [address] [place] [id number] [facility] Bilirubin [Mass/Vol] 0.3 mg/dL Normal 0.3-1.2 [facility] Comment on above: Performed By: #### C BC, HEPATIC, BMP #### [facility] [address] Bilirubin,Indirect Not performed Normal [facility] Comment on above: Performed By: #### C BC, HEPATIC, BMP #### [facility] [address] Bilirubin.indirect [Mass/Vol] mg/dL Normal 0.0-0.4 [facility] Comment on above: Performed By: #### C BC, HEPATIC, BMP #### [facility] [address] Globulin (S) [Mass/Vol] 3.1 g/dL Normal [facility] Comment on above: Performed By: #### C BC, HEPATIC, BMP #### [facility] [address] [place] [address] Protein [Mass/Vol] 7.5 g/dL Normal 6.1-7.9 [facility] Comment on above: Performed By: #### C BC, HEPATIC, BMP #### [facility] [address] [place] [address] Vital Signs Date Time Vital Sign Value Performing Clinician Facility 05-19-2023 13:39-0500 Body mass index (BMI) [Ratio] 40.06 kg/m2 Akanksha NEIL Work Phone: [facility] 05-19-2023 13:39-0500 Body weight 99.34 kg Akanksha NEIL Work Phone: [facility] 05-19-2023 13:39-0500 Diastolic blood pressure 80 mm[Hg] Akanksha NEIL Work Phone: [facility] 05-19-2023 13:39-0500 Systolic blood pressure 116 mm[Hg] Akanksha Obrien PA Work Phone: [facility] 02-10-2022 14:25-0500 Body height 154.94 cm Lori Stephen Other [facility] Other 02-10-2022 14:25-0500 Body mass index (BMI) [Ratio] 39.67 kg/m2 Lori Stephen Other [facility] Other 02-10-2022 14:25-0500 Body temperature 98.2 [degF] Lori Stephen Other [facility] Other 02-10-2022 14:25-0500 Body weight 95.26 kg Lori Stephen Other [facility] Other 02-10-2022 14:25-0500 Diastolic blood pressure 67 mm[Hg] Lori Stephen Other [facility] Other 02-10-2022 14:25-0500 Respiratory rate 18 /min Lori Stephen Other [facility] Other 02-10-2022 14:25-0500 SaO2% (BldA) [Mass fraction] 98 % Lori Stephen Other [facility] Other 02-10-2022 14:25-0500 Systolic blood pressure 125 mm[Hg] Lori Stephen Other [facility] Other Encounters Encounter Date Encounter Type Care Provider Facility Start: 06-10-2023 End: 06-10-2023 ambulatory KERRY SHOOK Not Available Start: 06-06-2023 End: 06-07-2023 ambulatory AKANKSHA OBRIEN [facility] Start: 05-29-2023 End: 05-29-2023 ambulatory RICHARD MCCLELLAN Not Available Start: 05-19-2023 End: 05-19-2023 ambulatory AKANKSHA OBRIEN Not Available Start: 05-19-2023 End: 05-19-2023 Office outpatient visit 15 minutes Akanksha NEIL Work Phone: [facility] Comment on above: Pelvic pain; PCOS (polycystic ovarian syndrome); Encounter to discuss test results; control counseling Start: 05-07-2023 End: 05-07-2023 ambulatory RICHARD MCCLELLAN Not Available Start: 02-10-2022 End: 02-10-2022 ambulatory Lori Stephen Facility:[facility] Start: 02-10-2022 Office outpatient ne w 20 minutes Lori Stephen [facility] Start: 02-06-2022 End: 02-06-2022 ambulatory Irma Smith Facility:[facility] Start: 02-06-2022 End: 02-06-2022 ambulatory MD Talat Nolan Work Phone: [facility] Work Phone: Start: 02-06-2022 End: 02-06-2022 Patient encounter procedure MD Talat Nolan Work Phone: [facility] [place] Start: 02-26-2021 End: 02-26-2021 ambulatory Irma Smith Facility:[facility] Start: 08-30-2020 ambulatory TYSON BANDA Facility:H 1 Start: 08-09-2020 End: 08-10-2020 ambulatory [facility] Facility:[facility] Procedures Date Procedure Procedure Detail Performing Clinician Start: 05-19-2023 Urnls dip stick/tabl et rgnt non-auto w/o micrscp Akanksha NEIL Work Phone: Plan of Treatment Date Care Activity Detail Author Start: 06-10-2023 End: 06-10-2023 Patient encounter procedure 06/10/2023 1:40 PM EST Consult [facility] [address] [place] [id number] Kerry Shook, DO [address] [place] [address] [place] [address] [facility] Start: 05-29-2023 End: 05-29-2023 Patient encounter procedure 05/29/2023 9:30 AM EST Office Visit [facility] [address] [place] [address] [facility] Start: 05-19-2023 End: 05-19-2024 DHEA DHEA Lab Routine PCOS (polycystic ovarian syndrome) Expected: 05/19/2023 (Approximate), Expires: 05/19/2024 [facility] Comment on above: Expected: 05/19/2023 (Approximate), Expires: 05/19/2024 CBC W Auto Different ial panel - Blood CBC and differential Lab Routine PCOS (polycystic ovarian syndrome) Ordered: 05/19/2023 [facility] Comment on above: Ordered: 05/19/2023 DHEA-sulfate DHEA-sulfate Lab Routine PCOS (polycystic ovarian syndrome) Ordered: 05/19/2023 [facility] Comment on above: Ordered: 05/19/2023 Follicle stimulating hormone Follicle stimulating hormone Lab Routine PCOS (polycystic ovarian syndrome) Ordered: 05/19/2023 [facility] Comment on above: Ordered: 05/19/2023 hCG, quantitative, hCG, quantitative, Lab Routine PCOS (polycystic ovarian syndrome) Ordered: 05/19/2023 [facility] Work Phone: Comment on above: Ordered: 05/19/2023 Hemoglobin A1c measurement Hemoglobin A1c Lab Routine PCOS (polycystic ovarian syndrome) Ordered: 05/19/2023 [facility] Comment on above: Ordered: 05/19/2023 Luteinizing hormone Luteinizing hormone Lab Routine PCOS (polycystic ovarian syndrome) Ordered: 05/19/2023 [facility] Comment on above: Ordered: 05/19/2023 Thyrotropin [Units/volume] in Serum or Plasma TSH Lab Routine PCOS (polycystic ovarian syndrome) Ordered: 05/19/2023 [facility] Comment on above: Ordered: 05/19/2023 Thyroxine (T4) free [Mass/volume] in Serum or Plasma T4, free Lab Routine PCOS (polycystic ovarian syndrome) Ordered: 05/19/2023 [facility] Comment on above: Ordered: 05/19/2023 Immunizations Immunization Date Immunization Notes Care Provider [place] 01-13-2023 influenza, live, intranasal, quadrivalent Akanksha NEIL Work Phone: [facility] 03-10-2022 Human rabies vaccine from Chicken fibroblast culture Akanksha NEIL Work Phone: [facility] 02-25-2022 Human rabies vaccine from Chicken fibroblast culture Akanksha NEIL Work Phone: [facility] 01-31-2021 meningococcal oligosaccharide (groups A, C, Y and W-135) diphtheria toxoid conjugate vaccine (MCV4O) Akanksha NEIL Work Phone: [facility] 12-24-2020 influenza, live, intranasal, quadrivalent Akanksha NEIL Work Phone: [facility] 11-24-2019 influenza, injectabl e, quadrivalent, contains preservative Akanksha NEIL Work Phone: [facility] 12-27-2018 influenza, injectabl e, quadrivalent, contains preservative Akanksha NEIL Work Phone: [facility] 02-16-2018 influenza, injectabl e, quadrivalent, preservative free Akanksha NEIL Work Phone: [facility] 06-09-2016 Human Papillomavirus 9-valent vaccine Akanksha NEIL Work Phone: [facility] 02-18-2016 Human Papillomavirus 9-valent vaccine Akanksha NEIL Work Phone: [facility] 12-28-2015 influenza virus vacc ine, whole virus Akanksha NEIL Work Phone: [facility] 12-04-2015 Human Papillomavirus 9-valent vaccine Akanksha NEIL Work Phone: [facility] 12-04-2015 meningococcal polysaccharide vaccine (MPSV4) Akanksha NEIL Work Phone: [facility] 12-04-2015 tetanus toxoid, redu edwige diphtheria toxoid, and acellular pertussis vaccine, adsorbed Akanksha NEIL Work Phone: [facility] 03-23-2014 influenza virus vacc ine, unspecified formulation Akanksha NEIL Work Phone: [facility] 04-27-2013 influenza virus vacc ine, unspecified formulation Akanksha NEIL Work Phone: [facility] 02-03-2012 influenza virus vacc ine, whole virus Akanksha NEIL Work Phone: [facility] 05-26-2011 influenza virus vacc ine, whole virus Akanksha NEIL Work Phone: [facility] 05-09-2009 influenza virus vacc ine, whole virus Akanksha NEIL Work Phone: [facility] 11-17-2008 diphtheria, tetanus toxoids and acellular pertussis vaccine Akanksha NEIL Work Phone: [facility] 11-17-2008 poliovirus vaccine, inactivated Akanksha NEIL Work Phone: [facility] 03-22-2007 influenza virus vacc ine, whole virus Akanksha NEIL Work Phone: [facility] 05-09-2005 diphtheria, tetanus toxoids and acellular pertussis vaccine Akanksha NEIL Work Phone: [facility] 05-09-2005 measles, mumps and r ubella virus vaccine Akanksha NEIL Work Phone: [facility] 02-04-2005 haemophilus influenz ae type b vaccine, conjugate unspecified formulation Akanksha NEIL Work Phone: [facility] 02-04-2005 varicella virus vaccine Akanksha NEIL Work Phone: [facility] 11-06-2004 measles, mumps and r ubella virus vaccine Akanksha NEIL Work Phone: [facility] 11-06-2004 pneumococcal conjuga te vaccine, 7 valent Akanksha NEIL Work Phone: [facility] 05-29-2004 diphtheria, tetanus toxoids and acellular pertussis vaccine Akanksha NEIL Work Phone: [facility] 05-29-2004 DTaP-hepatitis B and poliovirus vaccine Akanksha Obrien RASHAAD Work Phone: [facility] 05-29-2004 haemophilus influenz ae type b vaccine, PRP-T conjugate Akanksha Obrien RASHAAD Work Phone: [facility] 05-29-2004 hepatitis B vaccine, unspecified formulation Akanksha Obrien RASHAAD Work Phone: [facility] 05-29-2004 pneumococcal conjuga te vaccine, 7 valent Akanksha Vikki RASHAAD Work Phone: [facility] 05-29-2004 poliovirus vaccine, inactivated Akanksha Obrien RASHAAD Work Phone: [facility] 03-12-2004 diphtheria, tetanus toxoids and acellular pertussis vaccine Akanksha Obrien RASHAAD Work Phone: [facility] 03-12-2004 DTaP-hepatitis B and poliovirus vaccine Akanksha Obrien RASHAAD Work Phone: [facility] 03-12-2004 haemophilus influenz ae type b vaccine, PRP-T conjugate Akanksha Obrien RASHAAD Work Phone: [facility] 03-12-2004 pneumococcal conjuga te vaccine, 7 valent Akanksha Vikki RASHAAD Work Phone: [facility] 03-12-2004 poliovirus vaccine, inactivated Akanksha Obrien RASHAAD Work Phone: [facility] 01-10-2004 diphtheria, tetanus toxoids and acellular pertussis vaccine Akanksha Obrien RASHAAD Work Phone: [facility] 01-10-2004 DTaP-hepatitis B and poliovirus vaccine Akanksha Vikki RASHAAD Work Phone: [facility] 01-10-2004 haemophilus influenz ae type b vaccine, PRP-T conjugate Akanksha Vikki RASHAAD Work Phone: [facility] 01-10-2004 pneumococcal conjuga te vaccine, 7 valent Akanksha Vikki RASHAAD Work Phone: [facility] 01-10-2004 poliovirus vaccine, inactivated Akanksha Vikki RASHAAD Work Phone: [facility] 2003 hepatitis B vaccine, pediatric or pediatric/adolescent dosage Akanksha Vikki PA Work Phone: [facility] Payers Date Payer Category Payer Unknown [id number] 2021 Self-pay [id number] 2021 Unknown [id number] 2004 Managed Care HMO (unspecified) [employer] [id number] 2004-Present [address] [place] [address] HMO [id number] 2004 Private Health Insurance [id number] 2003 Unknown [id number] 2003 Unknown [id number] 2003 Unknown [id number] 2003 Unknown [id number] 2003 Unknown [id number] 1972 Unknown [id number] 1972 Unknown [id number] 1959 Unknown [id number] Unknown [id number] Unknown [id number] Unknown [id number] Social History Date Type Detail Facility Start: 12-11-2017 End: 05-07-2023 Tobacco smoking status NHIS Never smoked tobacco (finding) [facility] Start: 2003 Sex Assigned At Female F [facility] Start: 05-07-2023 Sex Assigned At N [place] Other Start: 05-07-2023 Tobacco use and exposure Smokeless tobacco non-user [facility] Start: 05-07-2023 History of Social function [facility] Start: 05-07-2023 Gender identity Identifies as female gender (finding) [facility] History of Present illness Narrative 05-19-2023 Priyanka Arana LPN - 05/19/2023 2:00 PM ESTRASHAAD Retana - 05/19/2023 2:00 PM EST Note Date & Type Note Facility 05-19-2023 History of Presen t illness Narrative junel Reason for Appointment: Patient ID: Kymberly Bradford is a 17 y.o. female who presents for Pelvic Pain, Polycystic Ovary Syndrome, and Results Patient presents today for Acute Visit appointment. Pt states she has history of PCOS and increased pain Current Medications: has a current medication list which includes the following prescription(s): ibuprofen, levetiracetam, metformin xr, norethindrone-ethinyl estradiol, and oxcarbazepine. 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 Social History Tobacco Use Smoking status: Never Smokeless tobacco: Never Substance Use Topics Alcohol use: Not on file Drug use: Not on file History reviewed. No pertinent surgical history. No Known Allergies Review of Systems: Review of Systems Constitutional: Negative. HENT: Negative. Eyes: Negative. Respiratory: Negative. Cardiovascular: Negative. Gastrointestinal: Negative. Musculoskeletal: Negative. Skin: Negative. Neurological: Negative. Psychiatric/Behavioral: Negative. All other systems reviewed and are negative. Hematological: Negative. Endocrine: Negative. Objective Physical Exam Constitutional: Appearance: Normal appearance. She is normal weight. HENT: Head: Normocephalic. Cardiovascular: Rate and Rhythm: Normal rate. Pulses: Normal pulses. Pulmonary: Effort: Pulmonary effort is normal. Breath sounds: Normal breath sounds. Abdominal: Palpations: Abdomen is soft. Musculoskeletal: General: Normal range of motion. Neurological: General: No focal deficit present. Mental Status: She is alert and oriented to person, place, and time. Psychiatric: Mood and Affect: Mood normal. Behavior: Behavior normal. Thought Content: Thought content normal. Judgment: Judgment normal. Vitals and nursing note reviewed. Vitals: Estimated body mass index is 40.06 kg/m as calculated from the following: Height as of 05/07/23: 5' 2 . Weight as of this encounter: 219 lb. BP: 116/80 No LMP recorded. Assessment/Plan Encounter Diagnoses Name Primary? Pelvic pain PCOS (polycystic ovarian syndrome) Encounter to discuss test results control counseling Pt presents for increased pain. Pt previously diagnosed with PCOS. Pt has started metformin previously and states made her pain worse, she has recently started spotting but states ran out of her oral contraceptive and didn't realized she needed to keep taking. We discussed reasons for pain, pt has in house US today and unofficially looks negative. Pt has not had recent lab work performed. We discussed Diagnostic laprosopic procedure if pain persists. She has been placed on schedule and will follow up with DR Shook to go over labs and move forward with diagnostic procedure. sent to pharmacy today and pt educated and starting medication again. She verbalized understanding, all questions answered. Documented by RASHAAD Retana on behalf of: RASHAAD Retana documented in this encounter [facility] Evaluation note 02-10-2022 Note Date & Type Note Facility 02-10-2022 Evaluation note Encounter Date Diagnosis Assessment Notes Feb, Injury of right ankle, initial encounter (ICD-10 - S99.911A) Use RICE therapy as discussed: Rest, Ice Compression, Elevate. Apply ice to affected area 3-4 times daily (Do not place ice source directly on skin, must cover with towel-like material). Take medication as directed. Rest and elevate sore extremity as much as possible. Do not take OTC medication pain relievers if prescription of medication given in office today. Contact office if no improvement of symptoms and we will help you get into a specialist. [facility] Other Evaluation note Note Date & Type Note Facility Evaluation note No assessment information availa [facility] Work Phone: Evaluation note Note Date & Type Note Facility Evaluation note Diagnosis Pelvic pain PCOS (polycystic ovarian syndrome) Polycystic ovaries Encounter to discuss test results Other specified counseling control counseling documented in this encounter [facility] History general Narrative - Reported Note Date & Type Note Facility History general Narrative - Reported Type Medical History epilepsy Surgical History PE tubes [employer] [facility] Other Summary Purpose Family History No Family History Records FoundNo Family History Records FoundNo Family History Records FoundNo Family History Records Found Advance Directives No Advanced Directives Records Found Advance Directive Response Recorded Date/ Time Advance Directives No December 12:18am Chief Complaint and Reason for Visit Chief Complaint G40.309;G40.909 Additional Source Comments INFORMATION SOURCE (unrecogn ized section and content) DATE CREATED AUTHOR [facility] DATE CREATED AUTHOR AUTHOR'S ORGANIZ ATION 02/24/2022 [facility] DATE CREATED AUTHOR AUTHOR'S ORGANIZ ATION 06/11/2023 [facility] DATE CREATED AUTHOR AUTHOR'S ORGANIZ ATION 06/11/2023 [facility] Care Teams (unrecognized sec tion and content) Team Status: Inactive Member Role Status Dates Talat Nolan MD Primary Care Provider Active Irma Smith DO Attending Provider Active Team Status: Active Member Role Status Dates Talat Nolan MD Primary Care Provider Active Goals (unrecognized section and content) Goals may be documented in a n alternate sectionNo Information REASON FOR VISIT (unrecogniz ed section and content) Reason Comments Pelvic Pain Polycystic Ovary Syndrome Results FOR RECORDS PERTAINING TO PATIENTS WHO ARE OR HAVE BEEN ENROLLED IN A CHEMICAL DEPENDENCY/SUBSTANCEABUSE PROGRAM, SOME INFORMATION MAY BE OMITTED. This clinical summary was aggregated from multiple sources. Caution should be exercised in using it in the provision of clinical care. This summary normalizes information from multiple sources, and as a consequence, information in this document may materially change the coding, format and clinical context of patient data. In addition, data may be omitted in some cases. CLINICAL DECISIONS SHOULD BE BASED ON THE PRIMARY CLINICAL RECORDS. [facility]. provides no warranty or guarantee of the accuracy or completeness of information in this document.
== END 2023-06-26 10:53 | disposition home or self-care (01) ==
LOC: PST 10:54
PROVIDERS: Visit Provider Obstetrics & Gynecology
DX: Z01.818 Encounter for other preprocedural examination (principal); R10.2 Pelvic and perineal pain; E28.2 Polycystic ovarian syndrome

== ENCOUNTER 2023-07-10 07:16 | Day surgery (SDC) | payer OTHER, SELFPAY ==
[2023-06-26 11:27] VITALS: BP 129/77; PULSE 87; RESP 20; TEMP 36.2; O2SAT 98; BMI 40.4
[2023-07-10] VITALS (9 sets, daily range): BP systolic 123–145; BP diastolic 62–91; PULSE 96–110; TEMP 35.7–36.1; O2SAT 95–98; BMI 40.3
--- OUTSIDE RECORDS SUMMARY | 2023-07-10 07:19 | XMS_ITS | CCD ---
Author Organization [facility] Care Team Providers Care Police Reserves Commander Name Role Phone TYSON BANDA Attending Unavailable TYSON BANDA Admitting Unavailable TYSON BANDA Consulting Unavailable TYSON BANDA Attending Unavailable TYSON BANDA Admitting Unavailable TYSON BANDA Consulting Unavailable MD Talat Nolan Primary Care Provider [phone] DO Irma Smith Attending Provider [phone] Irma Smith Admitting Unavailable Irma Smith Attending [...] 24 ABSOLUTE BASOPHIL 0.1 X10E9/L Normal 0.0-0.2 [facility] Comment on above: Performed By: #### C BCA, 40546-9, THYR, 31574-3, 06386-1 #### [facility] ([id number]) [address] [place] [address], [address] [place] [address] #### 2193-1 #### [facility] ([id number]) [address] [place] [address], [place] [address] ABSOLUTE NEUTROPHIL 2.2 X10E9/L Normal 1.5-6.6 [facility] Comment on above: Performed By: #### C SHANICE, , THYR, 30516-8, 34198-8 #### [facility] ([id number]) [address], [address] [place] [address] #### 2193-1 #### [facility] ([id number]) [address] [place] [address] Basophils/100 WBC (Bld) 1.1 % Normal [facility] Comment on above: Performed By: #### C SHANICE, , THYR, 00002-4, 52088-2 #### [facility] ([id number]) [address] [facility], [address] [place] [address] #### 2193-1 #### [facility] ([id number]) [address] [place] [address] Eosinophils (Bld) [#/Vol] 0.1 10*3/uL Normal 0.0-0.4 [facility] Comment on above: Performed By: #### C SHANICE, , THYR, 34424-2, 82168-0 #### [facility] ([id number]) [address], [address] [place] [address] #### 2193-1 #### [facility] ([id number]) [address] [place] [address] Eosinophils/100 WBC (Bld) 1.4 % Normal [facility] Comment on above: Performed By: #### C BCA, , THYR, 81037-5, 87417-0 #### [facility] ([id number]) [address], [address] [place] [address] #### 2193-1 #### [facility] ([id number]) [address] [place] [address] Erythrocyte distribution width (RBC) [Ratio] 13.0 % Normal 11.5-15.0 [facility] Comment on above: Performed By: #### C BCA, 58047-7, THYR, 00786-1, 82854-8 #### [facility] ([id number]) [address] [place] [address], [address] [address] #### 2193-1 #### [facility] ([id number]) [address] [place] [address] Hematocrit (Bld) [Volume fraction] 40.8 % Normal 35-47 [facility] Comment on above: Performed By: #### C BCA, 83323-6, THYR, 81765-0, 65770-2 #### [facility] ([id number]) [address] [place] [address], [address] [place] [address] #### 2193-1 #### [facility] ([id number]) [address] [place] [address] Hemoglobin (Bld) [Mass/Vol] 13.6 g/dL Normal 11.7-15.5 [facility] Comment on above: Performed By: #### C BCA, 19847-0, THYR, 96187-5, 19734-7 #### [facility] ([id number]) [address] [place] [address], [address] [place] [address] #### 2193-1 #### [facility] ([id number]) [address] [place] [address]609 Lymphocytes (Bld) [#/Vol] 2.1 10*3/uL Normal 1.0-3.5 [facility] Comment on above: Performed By: #### C BCA, 68717-3, THYR, 75817-8, 44223-1 #### [facility] ([id number]) [address] [facility], [address] [place] [address] #### 2193-1 #### [facility] ([id number]) [address] [place] [address] Lymphocytes/100 WBC (Bld) 43.8 % Normal [facility] Comment on above: Performed By: #### Roberto BCA, , THYR, 77002-5, 45643-8 #### [facility] ([id number]) [address] [facility], [address] [place] [address] #### 2193-1 #### [facility] ([id number]) [address] [place] [address] 27535 MCH (RBC) [Entitic mass] 29.9 pg Normal 27-34 [facility] Comment on above: Performed By: #### Roberto PRASAD, , THYR, 71363-5, 46585-6 #### [facility] ([id number]) [address] [facility], [address] [place] [address] #### 2193-1 #### [facility] ([id number]) [address] [place] [address]666 MCHC (RBC) [Mass/Vol] 33.3 g/dL Normal 32-36 [facility] Comment on above: Performed By: #### Roberto BCA, , THYR, 77011-0, 21377-7 #### [facility] ([id number]) [address] [facility], [address] [place] [address] #### 2193-1 #### [facility] ([id number]) [address] [place] [address] 56265 MCV (RBC) [Entitic vol] 90 fL Normal 80-100 [facility] Comment on above: Performed By: #### Roberto BCA, , THYR, 99466-6, 77369-1 #### [facility] ([id number]) [address] [facility], [address] [place] [address] #### 2193-1 #### [facility] ([id number]) [address] [place] [address] 35668 Monocytes (Bld) [#/Vol] 0.3 10*3/uL Normal 0-0.9 [facility] Comment on above: Performed By: #### C BCA, 38016-7, THYR, 74054-0, 33408-1 #### [facility] ([id number]) [address] [place] [address], [facility] [address] [place] [address] #### 2193-1 #### [facility] ([id number]) [address] [place] [address] 27264 Monocytes/100 WBC (Bld) 7.3 % Normal [facility] Comment on above: Performed By: #### C BCA, 96777-0, THYR, 40096-4, 76019-9 #### [facility] ([id number]) [address] [place] [address], [address] [address] #### 2193-1 #### [facility] ([id number]) [address] [place] [address]78 Neutrophils/100 WBC (Bld) 46.4 % Normal [facility] Comment on above: Performed By: #### C BCA, 21934-3, THYR, 84475-0, 84764-3 #### [facility] ([id number]) [address] [place] [address], [facility] [address] [place] [address] #### 2193-1 #### [facility] ([id number]) [address] [place] [address] 00968 Platelet mean volume (Bld) [Entitic vol] 8.7 fL Normal 7-12 [facility] Comment on above: Performed By: #### C BCA, 22378-8, THYR, 43961-1, 10849-2 #### [facility] ([id number]) [address] [facility], [address] [place] [address] #### 2193-1 #### [facility] ([id number]) [address] [place] [address] 13629 Platelets (Bld) [#/Vol] 269 10*3/uL Normal 150-450 [facility] Comment on above: Performed By: #### C BCA, 23696-0, THYR, 85449-7, 64861-9 #### [facility] ([id number]) [address] [facility], [address] [place] [address] #### 2193-1 #### [facility] ([id number]) [address] [place] [address] 06015 RBC COUNT 4.55 X10E12/L Normal 3.80-5.20 [facility] Comment on above: Performed By: #### C BCA, 15424-4, THYR, 78249-0, 67881-8 #### [facility] ([id number]) [address] [facility], [address] [place] [address] #### 2193-1 #### [facility] ([id number]) [address] [place] [address] 56048 WBC (Bld) [#/Vol] 4.8 10*3/uL Normal 4.0-11.0 [facility] Comment on above: Performed By: #### C BCA, 33895-5, THYR, 52398-3, 06564-5 #### [facility] ([id number]) [address] [facility], [address] [place] [address] #### 2193-1 #### [facility] ([id number]) [address] [place] [address] 72773 DHEA [Mass/Vol]on 06-06-2023 DHEA 3.722 ng/mL Normal 1.330-7.780 [facility] Comment on above: Result Comment: NOTE INTERPRETIVE INFORMATION: Dehydroepiandrosterone, Females 18 years and older: Postmenopausal: 0.60-5.73 ng/mL REFERENCE INTERVAL: Dehydroepiandrosterone by TMS Access complete set of age- and/or gender-specific reference intervals for this test in the [facility] Test Directory ([place]). This test was developed and its performance characteristics determined by [facility]. It has not been cleared or approved by the US Food and Drug Administration. This test was performed in a CLIA certified laboratory and is intended for clinical purposes. Performed By: [facility] [address] [place] [address] Visual Lead: Bandar Whaley MD, PhD CLIA Number: [id number] Performed By: #### C BCA, 98250-3, THYR, 42414-7, 38758-7 #### [facility] ([id number]) [address] [place] [address], [address] [place] [address] #### 2193-1 #### [facility] ([id number]) [address] [place] [address] 64806 DHEA-S [Mass/Vol]on 06-06-19 24 DHEA S 220 ug/dL Normal 51-321 [facility] Comment on above: Performed By: #### 2 191-5 #### [facility] ([id number]) [address] [place] [address], [address] [place] [address] Follitropin Qnon 06-06-2023 FOLLICLE STIM HORMONE 5.3 mIU/mL Normal [facility] Comment on above: Result Comment: NORMAL FEMALE Luteal 1.8-5.1 mIU/mL Follicular 3.8-8.8 mIU/mL Mid Cycle 4.5-22.5 mIU/mL Post Debi 16.7-113.6 mIU/mL Performed By: #### Roberto BCA, 10008-1, THYR, 11952-3, 89115-7 #### [facility] ([id number]) [address] [facility], [address] [place] [address] #### 2193-1 #### [facility] ([id number]) [address] [place] [address]358 HCG.beta subunit IA 3rd IS Q non 06-06-2023 SERUM B HCG,3RD I.S. <5 Normal [facility] Comment on above: Result Comment: NEW [...] Performed By: #### Roberto BCA, , THYR, 17403-1, 96896-6 #### [facility] ([id number]) [address] [facility], [address] [place] [address] #### 2193-1 #### [facility] ([id number]) [address] [place] [address] HGB A1C (GLYCO-HGB)on 2023 Glucose [Mass/Vol] 105 mg/dL Normal [facility] Comment on above: Performed By: ###Derek Mejia BCA, , THYR, 12311-1, 82742-8 #### [facility] ([id number]) [facility] [facility], [address] [place] [address] #### 2193-1 #### [facility] ([id number]) [address] [place] [address]128 HbA1c (Bld) [Mass fraction] 5.3 % Normal 4.4-5.6 [facility] Comment on above: Result Comment: NOTE ADA Guidelines Result HgbA1c Normal : less than 5.7 % Prediabetes : 5.7 % to 6.4 % Diabetes : > 6.4 % Use with caution in patients with abnormal hemoglobin variants as the half-life of red blood cells and in vivo glycation rates are affected. Performed By: #### Roberto PRASAD, , THYR, 52115-3, 40479-8 #### [facility] ([id number]) [address] [place] [address], [address] [address] #### 2193-1 #### [facility] ([id number]) [address] [place] [address] Lutropin Qnon 06-06-2023 LUTEINIZING HORMONE 8.6 mIU/mL Normal [facility] Comment on above: Result Comment: NORMAL FEMALE Follicular 2.1-10.9 mIU/mL Mid Cycle 19.2-103 mIU/mL Luteal 1.2-12.9 mIU/mL Post Debi 10.9-58.6 mIU/mL Performed By: #### Roberto BCA, , THYR, 35899-2, 18920-8 #### [facility] ([id number]) [address] [place] [address], [address] [place] [address] #### 2193-1 #### [facility] ([id number]) [address] [place] [address] THYROID PROFILEon 06-06-2023 Free T4 [Mass/Vol] 0.47 ng/dL Low 0.61-1.60 [facility] Comment on above: Performed By: #### C BCA, 89954-0, THYR, 81857-3, 64639-8 #### [facility] ([id number]) [address] [place] [address], [address] [place] [address] #### 2193-1 #### [facility] ([id number]) [address] [place] [address]129 TSH 0.80 uIU/mL Normal 0.49-4.67 [facility] Comment on above: Performed By: #### C BCA, 57877-3, THYR, 74820-6, 17256-8 #### [facility] ([id number]) [address] [place] [address], [facility] [address] [place] [address] #### 2193-1 #### [facility] ([id number]) [address] [place] [address]343 HCG ( test) Ql (U)o n 05-19-2023 Interpretation and review of laboratory results Normal [facility] Preg Test, Ur Negative [facility] Urinalysis macro (dipstick) panel (U)on 05-19-2023 Bilirubin, UA Negative Negative - 4(70) +++ mg/dL [facility] Blood, UA Negative Negative - 50 Kirby/mcL [facility] Clarity, UA Clear [facility] Color, UA Yellow [facility] Glucose, UA Negative Negative - 2000(110) ++++ mg/dL [facility] Interpretation and review of laboratory results Normal [facility] Ketones, UA Negative Negative - 160(16) ++++ mg/dL [facility] Leukocytes, UA Negative Negative - 500+++ Arelis/mcL [facility] Nitrite, UA Negative Negative - Positive [facility] pH, UA 7.0 5 - 9 [facility] Protein, UA Negative Negative - 1999(20) ++++ mg/dL [facility] Spec Grav, UA 1.010 1 - 1.03 [facility] Urobilinogen, UA 1.0 0.2 - 12 mg/dL [facility] XR ankle RT min 3V*on 2021 XR ankle RT min 3V* [address] [address] XRay Report Signed Patient: Kymberly Bradford MR#: [id number] [birth year] Acct:[id number] Age/Sex: 16 / F ADM Date: 02/10/22 Loc: XDUC Room: Type: [facility] Attending Dr: Lori OCAMPO Copies to: LORI STEPHEN Ordering Provider: LORI STEPHEN Date of Service: 02/10/22 XR/XR ankle RT min 3V*: S99.911A ([id number]) XR/XR foot RT min 3V*: S99.911A 3 viewsright foot plain film COMPARISON:None HISTORY:Right foot and ankle injury No fracture, dislocation or focal soft tissue abnormality seen. XR/XR foot RT min 3V* IMPRESSION:No acute findings 3 views of the right ankle Diffuse soft tissue swelling present. Ankle mortise preserved. No fracture. IMPRESSION: No fracture. Impression dictated by: Eliecer Escalante M.D.02/10/2022 2:28 PM Dictation Location: [place] [address] Transcribed By: [facility] 02/10/22 142 Dictated By: Eliecer Escalante DO 02/10/22 1427 Signed By: 02/10/[address] [facility] XR ankle RT min 3V* [facility] [employer] Other XR ankle RT min 3V* [facility] [employer] Other XR ankle RT min 3V* [address] [place] [address] [employer] Other XR ankle RT min 3V* TORIN Easley [address] [employer] Other XR ankle RT min 3V* XRay Report [place] [employer] Other XR ankle RT min 3V* Signed [employer] Other XR ankle RT min 3V* Patient: Mindy Bradford MR#: [id number] [employer] Other XR ankle RT min 3V* 1943 [employer] Other XR ankle RT min 3V* : 2005 Acct:[id number] [employer] Other XR ankle RT min 3V* Age/Sex: 16 / F ADM Date: 02/10/22 [employer] Other XR ankle RT min 3V* Loc: XDUCLY Room: pe: REG CLI [employer] Other XR ankle RT min 3V* Attending Dr: Guero Stephen COURT CLERK-C [employer] Other XR ankle RT min 3V* Copies to: LORI STEPHEN [employer] Other XR ankle RT min 3V* Ordering Provider: LORI STEPHEN [facility] [employer] Other XR ankle RT min 3V* Date of Service: 02/10/22 [employer] Other XR ankle RT min 3V* XR/XR ankle RT min 3V*: E08.948H [employer] Other XR ankle RT min 3V* ([id number]) XR/XR foot RT min 3V*: O25.601A [employer] Other XR ankle RT min 3V* [address] ain film [employer] Other XR ankle RT min 3V* COMPARISON:None [employer] Other XR ankle RT min 3V* HISTORY:Right foot a nd ankle injury [employer] Other XR ankle RT min 3V* No fracture, disloca tion or focal soft tissue abnormality seen. [employer] Other XR ankle RT min 3V* X R/XR foot RT min 3V* [employer] Other XR ankle RT min 3V* IMPRESSION:No acute findings [employer] Other XR ankle RT min 3V* 3 views of the right ankle [employer] Other XR ankle RT min 3V* Diffuse soft tissue swelling present. Ankle mortise preserved. No fracture. [employer] Other XR ankle RT min 3V* IMPRESSION: No fracture. [employer] Other XR ankle RT min 3V* Impression dictated by: Eliecer Escalante M.D.02/10/2022 2:28 PM [employer] Other XR ankle RT min 3V* Dictation Location: [place] [address] [employer] Other XR ankle RT min 3V* Transcribed By: PWS 02/10/221427 [employer] Other XR ankle RT min 3V* Dictated By: Eliecer Escalante DO 02/10/221426 [employer] Other XR ankle RT min 3V* Signed By: [employer] Other XR ankle RT min 3V* 02/10/221427 No rt [employer] Other Basic Metabolic Panelon 11-0 Anion gap [Moles/Vol] 13.6 mmol/L Normal 6.0-15.0 [facility] Comment on above: Performed By: #### C BC, HEPATIC, BMP, CARB #### [facility] [address] [place] [address] [place] Calcium [Mass/Vol] 9.5 mg/dL Normal 8.2-10.2 [facility] Comment on above: Result Comment: PERF ORMED BY: [place] [address] PATHOLOGIST UNDERCOLLAR BASTER CORY MAR M.D. Performed By: #### C BC, HEPATIC, BMP, CARB #### [facility] [address] Chloride [Moles/Vol] 102 mmol/L Normal 95-114 [facility] Comment on above: Performed By: #### C BC, HEPATIC, BMP, CARB #### [address] CO2 [Moles/Vol] 26.4 mmol/L Normal 22.0-30.0 [facility] Comment on above: Performed By: #### C BC, HEPATIC, BMP, CARB #### [place] [address] [place] Creatinine [Mass/Vol] 0.67 mg/dL Normal 0.44-1.03 [place] Comment on above: Performed By: #### C BC, HEPATIC, BMP, CARB #### [address] Estimated GFR ( Anna > 60 [facility] Comment on above: Result Comment: GFR estimated reference range: According to KDOQI guidelines, <60 ml/min/1.73m2 is sufficient to diagnose a patient with chronic kidney disease. Performed By: #### C BC, HEPATIC, BMP, CARB #### [place] [address] [place] Estimated GFR (Non- Am > 60 [facility] Comment on above: Performed By: #### C BC, HEPATIC, BMP, CARB #### [facility] [address] [place] [address] [place] Glucose [Mass/Vol] 125 mg/dL High 70-100 [facility] Comment on above: Result Comment: [place] Glucose Reference Range is dependent on time and content of last meal. Glucose of more than 200 mg/dL in a nonstressed, ambulatory subject supports the diagnosis of Diabetes Mellitus. ADA recommended reference range Performed By: #### C BC, HEPATIC, BMP, CARB #### [facility] [address] Potassium [Moles/Vol] 4.0 mmol/L Normal 3.5-5.1 [place] Comment on above: Performed By: #### C BC, HEPATIC, BMP, CARB #### [facility] [address] [place] [address] [place] Sodium [Moles/Vol] 138 mmol/L Normal 136-146 [facility] Comment on above: Performed By: #### C BC, HEPATIC, BMP, CARB #### [facility] [address] [place] [address] [place] Urea nitrogen [Mass/Vol] 10 mg/dL Normal 9-23 [facility] Comment on above: Performed By: #### C BC, HEPATIC, BMP, CARB #### [facility] [address] [place] [address] [place] Basophils Auto (Bld) [#/Vol] Ordered By: Irma Smith on 02-06-2022 Basophils (Bld) [#/Vol] 0.0 10*3/uL 0.0-0.1 [facility] Basophils/100 WBC Auto (Bld) Ordered By: Irma Smith on 02-06-2022 Basophils/100 WBC (Bld) 0.6 % . [facility] Body fluid albumin measureme nt (mass/volume)Ordered By: Irma Smith on 02-06-2022 Albumin (Body fld) [Mass/Vol] 4.0 g/dL 3.2-5.5 [facility] Carbamazepine (Tegretol)on 04-08-2021 Carbamazepine (Tegretol) < 2.0 Low 4.0-12.0 [facility] Comment on above: Order Comment: Date of last dose?: [id number] Time of last dose?: 1114 Result Comment: Last dose: - PERFORMED BY: [place] [address] PATHOLOGIST UNDERCOLLAR BASTER CORY MAR M.D. Performed By: #### C BC, HEPATIC, BMP, CARB #### [address] Complete Blood Count Auto Di ffon 02-06-2022 Basophils (Bld) [#/Vol] 0.0 10*3/uL Normal 0.0-0.1 [facility] Comment on above: Result Comment: PERF ORMED BY: [place] [address] PATHOLOGIST UNDERCOLLAR BASTER CORY MAR M.D. Performed By: #### C BC, HEPATIC, BMP, CARB #### [address] Basophils/100 WBC (Bld) 0.6 % Normal . [facility] Comment on above: Performed By: #### C BC, HEPATIC, BMP, CARB #### [place] [address] [place] Eosinophils (Bld) [#/Vol] 0.1 10*3/uL Normal 0.0-0.7 [facility] Comment on above: Performed By: #### C BC, HEPATIC, BMP, CARB #### [address] Eosinophils/100 WBC (Bld) 1.3 % Normal . [facility] Comment on above: Performed By: #### C BC, HEPATIC, BMP, CARB #### [facility] [address] [place] [address] [place] Erythrocyte distribution width (RBC) [Ratio] 12.7 % Normal 11.9-15.3 [facility] Comment on above: Performed By: #### C BC, HEPATIC, BMP, CARB #### [facility] [address] [place] [address] Hematocrit (Bld) [Volume fraction] 40.3 % Normal 36.0-46.0 [facility] Comment on above: Performed By: #### C BC, HEPATIC, BMP, CARB #### [address] Hemoglobin (Bld) [Mass/Vol] 13.2 g/dL Normal 12.0-16.0 [facility] Comment on above: Performed By: #### C BC, HEPATIC, BMP, CARB #### [address] Lymphocytes (Bld) [#/Vol] 2.2 10*3/uL Normal 1.20-4.8 [facility] Comment on above: Performed By: #### C BC, HEPATIC, BMP, CARB #### [address] Lymphocytes/100 WBC (Bld) 41.5 % Normal . [facility] Comment on above: Performed By: #### C BC, HEPATIC, BMP, CARB #### [address] MCH (RBC) [Entitic mass] 29.2 pg Normal 25.0-35.0 [facility] Comment on above: Performed By: #### C BC, HEPATIC, BMP, CARB #### [address] MCV (RBC) [Entitic vol] 89.1 fL Normal 78-102 [facility] Comment on above: Performed By: #### C BC, HEPATIC, BMP, CARB #### [address] Mean Corpuscular HGB Conc 32.8 g/dL Normal 31.0-37.0 [facility] Comment on above: Performed By: #### C BC, HEPATIC, BMP, CARB #### [place] [address] [place] Monocytes (Bld) [#/Vol] 0.3 10*3/uL Normal 0.1-1.00 [facility] Comment on above: Performed By: #### C BC, HEPATIC, BMP, CARB #### [place] [id number] [place] Monocytes/100 WBC (Bld) 5.7 % Normal . [facility] Comment on above: Performed By: #### C BC, HEPATIC, BMP, CARB #### [place] [address] [place] Neutrophils (Bld) [#/Vol] 2.6 10*3/uL Normal 1.2-7.7 [facility] Comment on above: Performed By: #### C BC, HEPATIC, BMP, CARB #### [place] [address] [place] Neutrophils/100 WBC (Bld) 50.9 % Normal . [facility] Comment on above: Performed By: #### C BC, HEPATIC, BMP, CARB #### [place] [address] [place] Nucleated RBC/100 WBC (Bld) [Ratio] 0.1 % Normal 0-0.5 [facility] Comment on above: Performed By: #### C BC, HEPATIC, BMP, CARB #### [address] Platelet mean volume (Bld) [Entitic vol] 8.6 fL Normal 6.3-10.7 [facility] Comment on above: Performed By: #### C BC, HEPATIC, BMP, CARB #### [place] [address] [place] Platelets (Bld) [#/Vol] 248 10*3/uL Normal 150-450 [facility] Comment on above: Performed By: #### C BC, HEPATIC, BMP, CARB #### [place] [address] [place] RBC (Bld) [#/Vol] 4.53 10*6/uL Normal 4.10-5.10 [facility] Comment on above: Performed By: #### C BC, HEPATIC, BMP, CARB #### [place] [address] [place] WBC (Bld) [#/Vol] 5.2 10*3/uL Normal 4.5-13.5 [facility] Comment on above: Performed By: #### C BC, HEPATIC, BMP, CARB #### [facility] [place] [address] Creatinine and Glomerular fi ltration rate.predicted panel (S/P/Bld)Ordered By: Irma Smith on 02-06-2022 Creatinine [Mass/Vol] 0.67 mg/dL 0.44-1.03 [place] Direct bilirubin measurement Ordered By: Irma Smith on 02-06-2022 Bilirubin.direct [Mass/Vol] mg/dL 0.0-0.4 [facility] Eosinophils Auto (Bld) [#/Vo l]Ordered By: Irma Smith on 02-06-2022 Eosinophils (Bld) [#/Vol] 0.1 10*3/uL 0.0-0.7 [facility] Eosinophils/100 WBC Auto (Bl d)Ordered By: Irma Smith on 02-06-2022 Eosinophils/100 WBC (Bld) 1.3 % . [facility] Erythrocyte distribution wid th Auto (RBC) [Ratio]Ordered By: Irma Smith on 02-06-2022 Erythrocyte distribution width (RBC) [Ratio] 12.7 % 11.9-15.3 [facility] Estimated glomerular filtrat ion rate (GFR) non- AmericanOrdered By: Irma Smith on 02-06-2022 GFR/1.73 sq M.predicted among non-blacks MDRD (S/P/Bld) [Vol rate/Area] > 60 mL/Min [facility] Globulin Calc (S) [Mass/Vol] Ordered By: Irma Smith on 02-06-2022 Globulin (S) [Mass/Vol] 2.8 g/dL [facility] Hematocrit Auto (Bld) [Volum e fraction]Ordered By: Irma Smith on 02-06-2022 Hematocrit (Bld) [Volume fraction] 40.3 % 36.0-46.0 [facility] Hemoglobin [Mass/volume] in BloodOrdered By: Irma Smith on 02-06-2022 Hemoglobin (Bld) [Mass/Vol] 13.2 g/dL 12.0-16.0 [facility] Hepatic Panelon 02-06-2022 Albumin [Mass/Vol] 4.0 g/dL Normal 3.2-5.5 [facility] Comment on above: Performed By: #### C BC, HEPATIC, BMP, CARB #### [facility] [address] Albumin/Globulin [Mass ratio] 1.4 {ratio} Normal [facility] Comment on above: Performed By: #### C BC, HEPATIC, BMP, CARB #### [facility] [address] ALP [Catalytic activity/Vol] 75 U/L Normal 32-92 [facility] Comment on above: Performed By: #### C BC, HEPATIC, BMP, CARB #### [facility] [address] ALT [Catalytic activity/Vol] 32 U/L Normal 10-60 [facility] Comment on above: Performed By: #### C BC, HEPATIC, BMP, CARB #### [facility] [address] AST [Catalytic activity/Vol] 18 U/L Normal 10-42 [facility] Comment on above: Performed By: #### C BC, HEPATIC, BMP, CARB #### [facility] [address] Bilirubin [Mass/Vol] 0.3 mg/dL Normal 0.3-1.2 [facility] Comment on above: Performed By: #### C BC, HEPATIC, BMP, CARB #### [facility] [address] [place] [address] [place] Bilirubin,Indirect Not performed Normal [place] Comment on above: Performed By: #### C BC, HEPATIC, BMP, CARB #### [facility] [address] Bilirubin.indirect [Mass/Vol] mg/dL Normal 0.0-0.4 [facility] Comment on above: Performed By: #### C BC, HEPATIC, BMP, CARB #### [facility] [address] Globulin (S) [Mass/Vol] 2.8 g/dL Normal [facility] Comment on above: Performed By: #### C BC, HEPATIC, BMP, CARB #### [facility] [address] Protein [Mass/Vol] 6.8 g/dL Normal 6.1-7.9 [facility] Comment on above: Performed By: #### C BC, HEPATIC, BMP, CARB #### [facility] [address] Laboratory - Hematology and Cell countsOrdered By: Irma Smith on 02-06-2022 Nucleated RBC/100 WBC (Bld) [Ratio] 0.1 % 0-0.5 [facility] Leukocytes [#/volume] in Blo od by Automated countOrdered By: Irma Smith on 02-06-2022 WBC (Bld) [#/Vol] 5.2 10*3/uL 4.5-13.5 [facility] Lymphocytes Auto (Bld) [#/Vo l]Ordered By: Irma Smith on 02-06-2022 Lymphocytes (Bld) [#/Vol] 2.2 10*3/uL 1.20-4.8 [facility] Lymphocytes/100 WBC Auto (Bl d)Ordered By: Irma Smith on 02-06-2022 Lymphocytes/100 WBC (Bld) 41.5 % . [facility] MCH Auto (RBC) [Entitic mass ]Ordered By: Irma Smith on 02-06-2022 MCH (RBC) [Entitic mass] 29.2 pg 25.0-35.0 [facility] MCHC Auto (RBC) [Mass/Vol]Or dered By: Irma Smith on 02-06-2022 MCHC (RBC) [Mass/Vol] 32.8 g/dL 31.0-37.0 [place] MCV Auto (RBC) [Entitic vol] Ordered By: Irma Smith on 02-06-2022 MCV (RBC) [Entitic vol] 89.1 fL 78-102 [facility] Monocytes Auto (Bld) [#/Vol] Ordered By: Irma Smith on 02-06-2022 Monocytes (Bld) [#/Vol] 0.3 10*3/uL 0.1-1.00 [facility] Monocytes/100 WBC Auto (Bld) Ordered By: Irma Smith on 02-06-2022 Monocytes/100 WBC (Bld) 5.7 % . [facility] Neutrophils Auto (Bld) [#/Vo l]Ordered By: Irma Smith on 02-06-2022 Neutrophils (Bld) [#/Vol] 2.6 10*3/uL 1.2-7.7 [facility] Neutrophils/100 WBC Auto (Bl d)Ordered By: Irma Smith on 02-06-2022 Neutrophils/100 WBC (Bld) 50.9 % . [facility] No Panel InformationOrdered By: Irma Smith on 02-06-2022 Estimated GFR () > 60 mL/Min [facility] Comment on above: GFR estimated refere nce range: According to KDOQI guidelines, <60 ml/min/1.73m2 is sufficient to diagnose a patient with chronic kidney disease. Pharmacy Creatinine Clearance (Chem N/A [facility] Platelet mean volume Auto (B ld) [Entitic vol]Ordered By: Irma Smith on 02-06-2022 Platelet mean volume (Bld) [Entitic vol] 8.6 fL 6.3-10.7 [facility] Platelets Auto (Bld) [#/Vol] Ordered By: Irma Smith on 02-06-2022 Platelets (Bld) [#/Vol] 248 10*3/uL 150-450 [facility] Protein [Mass/volume] in Ser um or PlasmaOrdered By: Irma Smith on 02-06-2022 Protein [Mass/Vol] 6.8 g/dL 6.1-7.9 [facility] RBC Auto (Bld) [#/Vol]Ordere d By: Irma Smith on 02-06-2022 RBC (Bld) [#/Vol] 4.53 10*6/uL 4.10-5.10 [facility] Serum or plasma alanine martin otransferase measurement without P-5'-P (enzymatic activiOrdered By: Irma Smith on 02-06-2022 ALT No additional P-5'-P [Catalytic activity/Vol] 32 U/L 10-60 [facility] Serum or plasma albumin/glob ulin mass ratioOrdered By: Irma Smith on 02-06-2022 Albumin/Globulin [Mass ratio] 1.4 {ratio} [facility] Serum or plasma alkaline kenny sphatase measurement (enzymatic activity/volume)Ordered By: Irma Smith on 02-06-2022 ALP [Catalytic activity/Vol] 75 U/L 32-92 [facility] Serum or plasma anion gap de terminationOrdered By: Irma Smith on 02-06-2022 Anion gap [Moles/Vol] 13.6 mmol/L 6.0-15.0 [facility] Serum or plasma aspartate am inotransferase measurement (enzymatic activity/volume)Ordered By: Irma Smith on 02-06-2022 AST [Catalytic activity/Vol] 18 U/L 10-42 [facility] Serum or plasma calcium eduardo urement (mass/volume)Ordered By: Irma Smith on 02-06-2022 Calcium [Mass/Vol] 9.5 mg/dL 8.2-10.2 [facility] Serum or plasma chloride vi surement (moles/volume)Ordered By: Irma Smith on 02-06-2022 Chloride [Moles/Vol] 102 mmol/L 95-114 [facility] Serum or plasma glucose eduardo urement (mass/volume)Ordered By: Irma Smith on 02-06-2022 Glucose [Mass/Vol] 125 mg/dL 70-100 [facility] Comment on above: ADA recommended refe rence rangeRandom Glucose Reference Range is dependent on time and content of last meal. Glucose of more than 200 mg/dL in a nonstressed, ambulatory subject supports the diagnosis of Diabetes Mellitus. Serum or plasma non-glucuron idated bilirubin measurement (mass/volume)Ordered By: Irma Smith on 02-06-2022 Bilirubin.indirect [Mass/Vol] TNP [facility] Comment on above: Test not performed Serum or plasma potassium me asurement (moles/volume)Ordered By: Irma Smith on 02-06-2022 Potassium [Moles/Vol] 4.0 mmol/L 3.5-5.1 [place] Serum or plasma sodium measu rement (moles/volume)Ordered By: Irma Smith on 02-06-2022 Sodium [Moles/Vol] 138 mmol/L 136-146 [facility] Serum or plasma total biliru bin measurement (mass/volume)Ordered By: Irma Smith on 02-06-2022 Bilirubin [Mass/Vol] 0.3 mg/dL 0.3-1.2 [facility] Serum or plasma total carbon dioxide measurement (moles/volume)Ordered By: Irma Smith on 02-06-2022 CO2 [Moles/Vol] 26.4 mmol/L 22.0-30.0 [facility] Serum or plasma urea nitroge n measurement (mass/volume)Ordered By: Irma Smith on 02-06-2022 Urea nitrogen [Mass/Vol] 10 mg/dL 9-23 [facility] carBAMazepine [Mass/volume] in Serum or PlasmaOrdered By: Irma Smith on 02-06-2022 carBAMazepine [Mass/Vol] < 2.0 ug/mL 4.0-12.0 [facility] Comment on above: Last dose: - Basic Metabolic Panelon 02-05 Calcium [Mass/Vol] 10.1 mg/dL Normal 8.2-10.2 [facility] Comment on above: Result Comment: PERF ORMED BY: [place] [address] PATHOLOGIST UNDERCOLLAR BASTER CORY MAR M.D. Performed By: #### C BC, HEPATIC, BMP #### [facility] [address] Chloride [Moles/Vol] 105 mmol/L Normal 95-114 [facility] Comment on above: Performed By: #### C BC, HEPATIC, BMP #### [facility] [address] CO2 [Moles/Vol] 24.3 mmol/L Normal 22.0-30.0 [facility] Comment on above: Performed By: #### C BC, HEPATIC, BMP #### [facility] [place] [address] Creatinine [Mass/Vol] 0.64 mg/dL Normal 0.44-1.03 [place] Comment on above: Performed By: #### C BC, HEPATIC, BMP #### [facility] [place] [address] Glucose [Mass/Vol] 80 mg/dL Normal 70-100 [facility] Comment on above: Result Comment: [facility] [place][note 2] Glucose Reference Range is dependent on time and content of last meal. Glucose of more than 200 mg/dL in a nonstressed, ambulatory subject supports the diagnosis of Diabetes Mellitus. ADA recommended reference range Performed By: #### C BC, HEPATIC, BMP #### [facility] [place] [address] Potassium [Moles/Vol] 4.1 mmol/L Normal 3.5-5.1 [place] Comment on above: Performed By: #### C BC, HEPATIC, BMP #### [address] Sodium [Moles/Vol] 140 mmol/L Normal 138-145 [facility] Comment on above: Performed By: #### C BC, HEPATIC, BMP #### [address] Urea nitrogen [Mass/Vol] 10 mg/dL Normal 12-27 [facility] Comment on above: Performed By: #### C BC, HEPATIC, BMP #### [address] Complete Blood Count Auto Di ffon 02-26-2021 Basophils (Bld) [#/Vol] 0.0 10*3/uL Normal 0.0-0.1 [facility] Comment on above: Result Comment: PERF ORMED BY: [place] [address] PATHOLOGIST UNDERCOLLAR BASTER CORY MAR M.D. Performed By: #### C BC, HEPATIC, BMP #### [place] [address] [place] Basophils/100 WBC (Bld) 0.6 % Normal . [facility] Comment on above: Performed By: #### C BC, HEPATIC, BMP #### [facility] [address] Eosinophils (Bld) [#/Vol] 0.1 10*3/uL Normal 0.0-0.7 [facility] Comment on above: Performed By: #### C BC, HEPATIC, BMP #### [facility] [address] Eosinophils/100 WBC (Bld) 2.0 % Normal . [facility] Comment on above: Performed By: #### C BC, HEPATIC, BMP #### [address] Erythrocyte distribution width (RBC) [Ratio] 13.1 % Normal 11.9-15.3 [facility] Comment on above: Performed By: #### C BC, HEPATIC, BMP #### [address] Hematocrit (Bld) [Volume fraction] 43.3 % Normal 36.0-46.0 [facility] Comment on above: Performed By: #### C BC, HEPATIC, BMP #### [address] Hemoglobin (Bld) [Mass/Vol] 14.2 g/dL Normal 12.0-16.0 [facility] Comment on above: Performed By: #### C BC, HEPATIC, BMP #### [facility] [address] [place] [address] [place] Lymphocytes (Bld) [#/Vol] 2.2 10*3/uL Normal 1.20-4.8 [facility] Comment on above: Performed By: #### C BC, HEPATIC, BMP #### [place] [address] [place] Lymphocytes/100 WBC (Bld) 37.4 % Normal . [facility] Comment on above: Performed By: #### C BC, HEPATIC, BMP #### [address] MCH (RBC) [Entitic mass] 28.9 pg Normal 25.0-35.0 [facility] Comment on above: Performed By: #### C BC, HEPATIC, BMP #### [facility] [address] MCV (RBC) [Entitic vol] 88.1 fL Normal 78-102 [facility] Comment on above: Performed By: #### C BC, HEPATIC, BMP #### [facility] [address] Mean Corpuscular HGB Conc 32.8 g/dL Normal 31.0-37.0 [facility] Comment on above: Performed By: #### C BC, HEPATIC, BMP #### [facility] [place] [address] Monocytes (Bld) [#/Vol] 0.5 10*3/uL Normal 0.1-1.00 [facility] Comment on above: Performed By: #### C BC, HEPATIC, BMP #### [address] Monocytes/100 WBC (Bld) 9.1 % Normal . [facility] Comment on above: Performed By: #### C BC, HEPATIC, BMP #### [address] Neutrophils (Bld) [#/Vol] 3.0 10*3/uL Normal 1.2-7.7 [facility] Comment on above: Performed By: #### C BC, HEPATIC, BMP #### [place] [address] [place] Neutrophils/100 WBC (Bld) 50.9 % Normal . [facility] Comment on above: Performed By: #### C BC, HEPATIC, BMP #### [facility] [place] [address] [place] [address] [place] Nucleated RBC/100 WBC (Bld) [Ratio] 0.1 % Normal 0-0.5 [facility] Comment on above: Performed By: #### C BC, HEPATIC, BMP #### [place] [address] [place] Platelet mean volume (Bld) [Entitic vol] 9.3 fL Normal 6.3-10.7 [facility] Comment on above: Performed By: #### C BC, HEPATIC, BMP #### [facility] [place] [address] Platelets (Bld) [#/Vol] 269 10*3/uL Normal 150-450 [facility] Comment on above: Performed By: #### C BC, HEPATIC, BMP #### [facility] [place] [address] RBC (Bld) [#/Vol] 4.92 10*6/uL Normal 4.10-5.10 [facility] Comment on above: Performed By: #### C BC, HEPATIC, BMP #### [address] WBC (Bld) [#/Vol] 5.9 10*3/uL Normal 4.5-13.5 [facility] Comment on above: Performed By: #### C BC, HEPATIC, BMP #### [address] Hepatic Panelon 02-26-2021 Albumin [Mass/Vol] 4.4 g/dL Normal 3.2-5.5 [facility] Comment on above: Performed By: #### C BC, HEPATIC, BMP #### [address] Albumin/Globulin [Mass ratio] 1.4 {ratio} Normal [facility] Comment on above: Performed By: #### C BC, HEPATIC, BMP #### [address] ALP [Catalytic activity/Vol] 78 U/L Normal 32-92 [facility] Comment on above: Performed By: #### C BC, HEPATIC, BMP #### [address] ALT [Catalytic activity/Vol] 35 U/L Normal 10-60 [facility] Comment on above: Performed By: #### C BC, HEPATIC, BMP #### [address] [place] [address] [place] AST [Catalytic activity/Vol] 20 U/L Normal 10-42 [facility] Comment on above: Performed By: #### C BC, HEPATIC, BMP #### [facility] [address] [place] [id number] [facility] Bilirubin [Mass/Vol] 0.3 mg/dL Normal 0.3-1.2 [facility] Comment on above: Performed By: #### C BC, HEPATIC, BMP #### [facility] [place] [address] Bilirubin,Indirect Not performed Normal [place] Comment on above: Performed By: #### C BC, HEPATIC, BMP #### [facility] [address] Bilirubin.indirect [Mass/Vol] mg/dL Normal 0.0-0.4 [facility] Comment on above: Performed By: #### C BC, HEPATIC, BMP #### [facility] [address] Globulin (S) [Mass/Vol] 3.1 g/dL Normal [facility] Comment on above: Performed By: #### C BC, HEPATIC, BMP #### [facility] [address] [place] [address] Protein [Mass/Vol] 7.5 g/dL Normal 6.1-7.9 [facility] Comment on above: Performed By: #### C BC, HEPATIC, BMP #### [facility] [address] [place] [address] Vital Signs Date Time Vital Sign Value Performing Clinician Facility 05-19-2023 13:39-0500 Body mass index (BMI) [Ratio] 40.06 kg/m2 Akanksha NEIL Work Phone: [facility] 05-19-2023 13:39-0500 Body weight 99.34 kg Akanksha NEIL Work Phone: [facility] 05-19-2023 13:39-0500 Diastolic blood pressure 80 mm[Hg] Akanksha NEIL Work Phone: [facility] 05-19-2023 13:39-0500 Systolic blood pressure 116 mm[Hg] Akanksha Obrien PA Work Phone: [facility] 02-10-2022 14:25-0500 Body height 154.94 cm Lori Stephen Other [facility] Other 02-10-2022 14:25-0500 Body mass index (BMI) [Ratio] 39.67 kg/m2 Lori Stephen Other [facility] Other 02-10-2022 14:25-0500 Body temperature 98.2 [degF] Lori Stephen Other [facility] Other 02-10-2022 14:25-0500 Body weight 95.26 kg Lori Stephen Other [facility] Other 02-10-2022 14:25-0500 Diastolic blood pressure 67 mm[Hg] Lori Stephen Other [facility] Other 02-10-2022 14:25-0500 Respiratory rate 18 /min Lori Stephen Other [facility] Other 02-10-2022 14:25-0500 SaO2% (BldA) [Mass fraction] 98 % Lori Stephen Other [facility] Other 02-10-2022 14:25-0500 Systolic blood pressure 125 mm[Hg] Lori Stephen Other [facility] Other Encounters Encounter Date Encounter Type Care Provider Facility Start: 06-10-2023 End: 06-10-2023 ambulatory KERRY SHOOK Not Available Start: 06-06-2023 End: 06-07-2023 ambulatory AKANKSHA OBRIEN [facility] Start: 05-29-2023 End: 05-29-2023 ambulatory RICHARD MCCLELLAN [...] Start: 02-10-2022 End: 02-10-2022 ambulatory Lori Stephen Facility:[facility] Start: 02-10-2022 Office outpatient ne w 20 minutes Lori Stephen [facility] Start: 02-06-2022 End: 02-06-2022 ambulatory Irma Smith Facility:[facility] Start: 02-06-2022 End: 02-06-2022 ambulatory MD Talat Nolan Work Phone: [facility] Work Phone: Start: 02-06-2022 End: 02-06-2022 Patient encounter procedure MD Talat Nolan Work Phone: [facility] [place] Start: 02-26-2021 End: 02-26-2021 ambulatory Irma Smith Facility:[facility] Start: 08-30-2020 ambulatory TYSON BANDA Facility:[facility] 1 Start: 08-09-2020 End: 08-10-2020 ambulatory [facility] Facility:[facility] Procedures Date Procedure Procedure Detail Performing Clinician Start: 05-19-2023 Urnls dip stick/tabl et rgnt non-auto w/o micrscp Akanksha NEIL Work Phone: Plan of Treatment Date Care Activity Detail Author Start: 06-10-2023 End: 06-10-2023 Patient encounter procedure 06/10/2023 1:40 PM EST Consult [facility] [address] [place] [id number] Kerry Shook, DO [address] [place] [address] [place] [address] [facility] Start: 05-29-2023 End: 05-29-2023 Patient encounter procedure 05/29/2023 9:30 AM EST Office Visit [facility] [address] [place] [address] [facility] Start: 05-19-2023 End: 05-19-2024 DHEA DHEA Lab Routine PCOS (polycystic ovarian syndrome) Expected: 05/19/2023 (Approximate), Expires: 05/19/2024 [facility] Comment on above: Expected: 05/19/2023 (Approximate), Expires: 05/19/2024 CBC W Auto Different ial panel - Blood CBC and differential Lab Routine PCOS (polycystic ovarian syndrome) Ordered: 05/19/2023 [facility] Comment on above: Ordered: 05/19/2023 DHEA-sulfate DHEA-sulfate Lab Routine PCOS (polycystic ovarian syndrome) Ordered: 05/19/2023 [facility] Comment on above: Ordered: 05/19/2023 Follicle stimulating hormone Follicle stimulating hormone Lab Routine PCOS (polycystic ovarian syndrome) Ordered: 05/19/2023 [facility] Comment on above: Ordered: 05/19/2023 hCG, quantitative, hCG, quantitative, Lab Routine PCOS (polycystic ovarian syndrome) Ordered: 05/19/2023 [facility] Work Phone: Comment on above: Ordered: 05/19/2023 Hemoglobin A1c measurement Hemoglobin A1c Lab Routine PCOS (polycystic ovarian syndrome) Ordered: 05/19/2023 [facility] Comment on above: Ordered: 05/19/2023 Luteinizing hormone Luteinizing hormone Lab Routine PCOS (polycystic ovarian syndrome) Ordered: 05/19/2023 [facility] Comment on above: Ordered: 05/19/2023 Thyrotropin [Units/volume] in Serum or Plasma TSH Lab Routine PCOS (polycystic ovarian syndrome) Ordered: 05/19/2023 [facility] Comment on above: Ordered: 05/19/2023 Thyroxine (T4) free [Mass/volume] in Serum or Plasma T4, free Lab Routine PCOS (polycystic ovarian syndrome) Ordered: 05/19/2023 [facility] Comment on above: Ordered: 05/19/2023 Immunizations Immunization Date Immunization Notes Care Provider [place] 01-13-2023 influenza, live, intranasal, quadrivalent Akanksha NEIL Work Phone: [facility] 03-10-2022 Human rabies vaccine from Chicken fibroblast culture Akanksha NEIL Work Phone: [facility] 02-25-2022 Human rabies vaccine from Chicken fibroblast culture Akanksha NEIL Work Phone: [facility] 01-31-2021 meningococcal oligosaccharide (groups A, C, Y and W-135) diphtheria toxoid conjugate vaccine (MCV4O) Akanksha NEIL Work Phone: [facility] 12-24-2020 influenza, live, intranasal, quadrivalent Akanksha NEIL Work Phone: [facility] 11-24-2019 influenza, injectabl e, quadrivalent, contains preservative Akanksha NEIL Work Phone: [facility] 12-27-2018 influenza, injectabl e, quadrivalent, contains preservative Akanksha NEIL Work Phone: [facility] 02-16-2018 influenza, injectabl e, quadrivalent, preservative free Akanksha NEIL Work Phone: [facility] 06-09-2016 Human Papillomavirus 9-valent vaccine Akanksha NEIL Work Phone: [facility] 02-18-2016 Human Papillomavirus 9-valent vaccine Akanksha NEIL Work Phone: [facility] 12-28-2015 influenza virus vacc ine, whole virus Akanksha NEIL Work Phone: [facility] 12-04-2015 Human Papillomavirus 9-valent vaccine Akanksha NEIL Work Phone: [facility] 12-04-2015 meningococcal polysaccharide vaccine (MPSV4) Akanksha NEIL Work Phone: [facility] 12-04-2015 tetanus toxoid, redu edwige diphtheria toxoid, and acellular pertussis vaccine, adsorbed Akanksha NEIL Work Phone: [facility] 03-23-2014 influenza virus vacc ine, unspecified formulation Akanksha NEIL Work Phone: [facility] [facility] 04-27-2013 influenza virus vacc ine, unspecified formulation Akanksha NEIL Work Phone: [facility] 02-03-2012 influenza virus vacc ine, whole virus Akanksha NEIL Work Phone: [facility] 05-26-2011 influenza virus vacc ine, whole virus Akanksha NEIL Work Phone: [facility] 05-09-2009 influenza virus vacc ine, whole virus Akanksha NEIL Work Phone: [facility] 11-17-2008 diphtheria, tetanus toxoids and acellular pertussis vaccine Akanksha NEIL Work Phone: [facility] 11-17-2008 poliovirus vaccine, inactivated Akanksha NELI Work Phone: [facility] 03-22-2007 influenza virus vacc ine, whole virus Akanksha NEIL Work Phone: [facility] 05-09-2005 diphtheria, tetanus toxoids and acellular pertussis vaccine Akanksha NEIL Work Phone: [facility] 05-09-2005 measles, mumps and r ubella virus vaccine Akanksha NEIL Work Phone: [facility] 02-04-2005 haemophilus influenz ae type b vaccine, conjugate unspecified formulation Akanksha NEIL Work Phone: [facility] 02-04-2005 varicella virus vaccine Akanksha NEIL Work Phone: [facility] 11-06-2004 measles, mumps and r ubella virus vaccine Akanksha NEIL Work Phone: [facility] 11-06-2004 pneumococcal conjuga te vaccine, 7 valent Akanksha NEIL Work Phone: [facility] 05-29-2004 diphtheria, tetanus toxoids and acellular pertussis vaccine Akanksha NEIL Work Phone: [facility] 05-29-2004 DTaP-hepatitis B and poliovirus vaccine Akanksha Obrien RASHAAD Work Phone: [facility] 05-29-2004 haemophilus influenz ae type b vaccine, PRP-T conjugate Akanksha Obrien RASHAAD Work Phone: [facility] 05-29-2004 hepatitis B vaccine, unspecified formulation Akanksha Obrien RASHAAD Work Phone: [facility] 05-29-2004 pneumococcal conjuga te vaccine, 7 valent Akanksha Vikki RASHAAD Work Phone: [facility] 05-29-2004 poliovirus vaccine, inactivated Akanksha Obrien RASHAAD Work Phone: [facility] 03-12-2004 diphtheria, tetanus toxoids and acellular pertussis vaccine Akanksha Obrien RASHAAD Work Phone: [facility] 03-12-2004 DTaP-hepatitis B and poliovirus vaccine Akanksha Obrien RASHAAD Work Phone: [facility] 03-12-2004 haemophilus influenz ae type b vaccine, PRP-T conjugate Akanksha Obrien RASHAAD Work Phone: [facility] 03-12-2004 pneumococcal conjuga te vaccine, 7 valent Akanksha Vikki RASHAAD Work Phone: [facility] 03-12-2004 poliovirus vaccine, inactivated Akanksha Obrien RASHAAD Work Phone: [facility] 01-10-2004 diphtheria, tetanus toxoids and acellular pertussis vaccine Akanksha Obrien RASHAAD Work Phone: [facility] 01-10-2004 DTaP-hepatitis B and poliovirus vaccine Akanksha Vikki RASHAAD Work Phone: [facility] 01-10-2004 haemophilus influenz ae type b vaccine, PRP-T conjugate Akanksha Vikki RASHAAD Work Phone: [facility] 01-10-2004 pneumococcal conjuga te vaccine, 7 valent Akanksha Vikki RASHAAD Work Phone: [facility] 01-10-2004 poliovirus vaccine, inactivated Akanksha Vikki RASHAAD Work Phone: [facility] 2003 hepatitis B vaccine, pediatric or pediatric/adolescent dosage Akanksha [place] PA Work Phone: [facility] Payers Date Payer Category Payer Unknown [id number] 2021 Self-pay [id number] 2021 Unknown [id number] 2004 Managed Care HMO (unspecified) [employer] [id number] 2004-Present [address] [place] [address] HMO [id number] 2004 Private Health Insurance [id number] 2003 Unknown [id number] 2003 Unknown [id number] .1259 2003 Unknown [id number] .1259 2003 Unknown [id number] .1259 2003 Unknown [id number] .1286 1972 Unknown [id number] [id number] .593 1972 Unknown [id number] .593 1959 Unknown [id number] Unknown [id number] [id number] .531 Unknown [id number] .531 Unknown [id number] .531 Social History Date Type Detail Facility Start: 12-11-2017 End: 05-07-2023 Tobacco smoking status NHIS Never smoked tobacco (finding) [facility] Start: 2003 Sex Assigned At Female F [facility] Start: 05-07-2023 Sex Assigned At N Bass Manager Other Start: 05-07-2023 Tobacco use and exposure Smokeless tobacco non-user [facility] Start: 05-07-2023 History of Social function [facility] Start: 05-07-2023 Gender identity Identifies as female gender (finding) [facility] History of Present illness Narrative 05-19-2023 [...] of: RASHAAD Retana documented in this encounter [facility] Evaluation note 02-10-2022 Note Date & [...] will help you get into a specialist. [employer] Other Evaluation note Note Date & Type Note Facility Evaluation note No assessment information availa [facility] Work Phone: Evaluation note Note Date & Type Note Facility Evaluation note Diagnosis Pelvic pain PCOS (polycystic ovarian syndrome) Polycystic ovaries Encounter to discuss test results Other specified counseling control counseling documented in this encounter [facility] History general Narrative - Reported Note Date & Type Note Facility History general Narrative - Reported Type Medical History epilepsy Surgical History PE tubes [facility] [employer] Other Summary Purpose Family History No Family [...] and content) DATE CREATED AUTHOR [facility]/15/2020 [facility] DATE CREATED AUTHOR AUTHOR'S ORGANIZ ATION 02/24/2022 [facility] DATE CREATED AUTHOR AUTHOR'S ORGANIZ ATION 06/11/2023 [facility] DATE CREATED AUTHOR AUTHOR'S ORGANIZ ATION 06/11/2023 [facility] Care Teams (unrecognized sec tion and [...] BE BASED ON THE PRIMARY CLINICAL RECORDS. [employer] [facility]. provides no warranty or guarantee of the accuracy or completeness of information in this document.
[2023-07-10 07:30] LABS: Basophils Percent Auto 0.6 % (0.2-2.0); Eosinophils Absolute Auto 0.1 10^3/uL (0.0-0.7); Eosinophils Percent Auto 2.1 % (0.9-7.0); Hematocrit 41.2 % (36.0-48.0); Hemoglobin 13.5 g/dL (12.0-16.0); Lymphocytes Absolute Auto 2.8 10^3/uL (1.2-3.8); Lymphocytes Percent Auto 45.1 % (20.5-60.0); Mean Corpuscular HGB Conc 32.8 g/dL (29.9-35.2); Mean Corpuscular Volume 91.6 fL (81.0-99.0); Mean Platelet Volume 9.9 fL (9.5-13.5); Monocytes Absolute Auto 0.5 10^3/uL (0.3-0.8); Monocytes Percent Auto 7.2 % (1.7-12.0); Neutrophils Absolute Auto 2.8 10^3/uL (1.4-6.5); Platelet Count 256 10^3/uL (150-450); Red Cell Distribution Width 12.1 % (11.0-15.0); White Blood Count 6.3 10^3/uL (4.0-11.0)
[2023-07-10] MEDS: LACTATED RINGER'S SOLUTION 1,000 ML 50 ML IV (07:56)
[2023-07-10 08:01] LABS: HCG Quantitative <1 mIU/mL
--- NOTE | 2023-07-10 09:43 | PM.ONB ---
Brief Operative Note Date of procedure: 07/10/23 Pre-op diagnosis general: pelvic pain Post-op diagnosis: same as pre-op Procedure: NAME OF PROCEDURE: [diagnostic laparoscopy ] PROCEDURE: The patient was taken back to the Operating Room where she was placed in dorsal lithotomy position after given general anesthesia. The patient was prepped and draped in normal sterile fashion. A sponge stick was placed into the patient's vagina. Attention was turned to the patient's abdomen, where a small umbilical incision was made. The fascia was tented using Luis clamps and the fascia was entered sharply. Confirmation of intraabdominal placement of the 10 mm port was confirmed under direct visualization using a laparoscope. The patient's abdomen was then insufflated using CO2 gas with approximately 4 liters. A second port was placed left laterally, this was done under direct visualization with a 5 mm port. Survey of the patient's abdomen demonstrated normal liver and gallbladder. Survey of the patient's pelvic anatomy demonstrated normal appearing rt and lt ovary and tubes as well as normal appearing uterus. No endometrial implants could be noted, no evidence of any pelvic disease was seen, normal appearing pelvic cavity. All instruments were removed from the patient's abdomen. The patient's abdomen was deinsufflated of CO2 gas. The patient tolerated the procedure well. Sponge stick was removed from the patient's vagina. The patient's infraumbilical fascia was closed using #0 Vicryl on a GI needle. The patient's skin was closed laterally and infraumbilically using 4-0 Vicryl. The patient tolerated the procedure well. Sponge, lap and needle counts were correct x 2. The patient was taken to Recovery Room in stable condition. Anesthesia: ANDERSON Surgeon: Logan Shook Interactive Media Designer: Prema Swanson Estimated blood loss (mL): 5 Pathology: none sent Condition: stable Disposition: PACU Urinary Catheter Management Urinary Catheter Management 16FR CORTEZ: Cath placed during this visit: no
[2023-07-10] MEDS: HYDROCODONE/ACET 5-325 MG TABLET 1 TAB PO (10:20)
== END 2023-07-10 11:05 | disposition home or self-care (01) ==
PROVIDERS: PCP Internal Medicine; Visit Provider Obstetrics & Gynecology
PROC: (CPT 00840; principal; 2023-07-10 09:40)
DX: R10.2 Pelvic and perineal pain (principal); E28.2 Polycystic ovarian syndrome; G40.409 Other generalized epilepsy and epileptic syndromes, not intractable, without status epilepticus; Z87.442 Personal history of urinary calculi; F32.A Depression, unspecified; N92.0 Excessive and frequent menstruation with regular cycle
CPT/HCPCS: 00840; 49320; 36415; 84702; 85025; J1094; J2704